=== PATIENT | male | born 1960 | race Caucasian/White ===

== ENCOUNTER 2017-12-08 15:26 | Inpatient (IN) | payer MEDICARE, OTHER ==
[~2017-12-08] VITALS: Ht 190.5 cm; Wt 129.0 kg
[~2017-12-08 15:26] MED LIST: ALBU8.5H8 IH; CLOP75TA35 PO; DIAZ2TAB PO; GABA-581 PO; HYDR-565 PO; LAMO150T2 PO; LISI-604 PO; METF500T PO; MONT10TA21 PO; NITR0.4T48 SL; PRAVASTATIN SODIUM PO; RANI150C11 PO; VALA1POW PO; VILA40TA PO; hytrin PO
[2017-12-08] MEDS ORDERED: aspirin 81mg tab.chew PO ONE (15:30)
[2017-12-08 15:50] LABS: BASOPHILS # (AUTO) 0.1 X10'3 (0-0.2); EOSINOPHILS # (AUTO) 0.2 X10'3 (0-0.9); EOSINOPHILS % (AUTO) 1.7 % (0-6); HEMATOCRIT 35.4 % (42.0-52.0); HEMOGLOBIN 12.1 g/dl (14.0-17.9); LYMPHOCYTES # (AUTO) 2.6 X10'3 (1.1-4.8); LYMPHOCYTES % (AUTO) 28.9 % (21-51); MEAN CORPUSCULAR HEMOGLOBIN 30.6 PG (27.0-31.0); MEAN CORPUSCULAR HGB CONC 34.2 % (33.0-36.5); MEAN CORPUSCULAR VOLUME 89.6 FL (78-98); MEAN PLATELET VOLUME 7.2 FL (7.4-10.4); MONOCYTES # (AUTO) 0.6 X10'3 (0-0.9); NEUTROPHILS # (AUTO) 5.5 X10'3 (1.8-7.7); NEUTROPHILS % (AUTO) 61.4 % (42-75); PLATELET COUNT 400 X10'3 (140-440); RED BLOOD COUNT 3.95 X10'6 (4.70-6.10); RED CELL DISTRIBUTION WIDTH 13.7 % (11.5-14.5)
[2017-12-08 16:09] LABS: ALANINE AMINOTRANSFERASE 28 U/L (12-78); ALBUMIN 3.5 G/DL (3.4-5.0); ALBUMIN/GLOBULIN RATIO 0.8 (1.1-1.5); ALKALINE PHOSPHATASE 58 IU/L (46-116); ANION GAP 11 (8-16); ASPARTATE AMINO TRANSFERASE 17 U/L (10-37); BILIRUBIN,TOTAL 0.3 MG/DL (0.1-1.0); BLOOD UREA NITROGEN 21 MG/DL (7-18); BUN/CREATININE RATIO 14.5 (5.4-32.0); CHLORIDE 99 MMOL/L (99-107); CREATININE 1.45 MG/DL (0.60-1.10); GLUCOSE 124 MG/DL (70-104); MAGNESIUM 1.7 MG/DL (1.5-2.4); POTASSIUM 4.1 MMOL/L (3.5-5.1); SODIUM 135 MMOL/L (135-145); TOTAL CARBON DIOXIDE 24.6 MMOL/L (24-32); TOTAL PROTEIN 8.1 G/DL (6.4-8.2); eGFR 51 ML/MIN
[2017-12-08] MEDS ORDERED: aminophylline 250mg/10ml inj. IV PRN (17:35)
[2017-12-08] MEDS ORDERED: acetaminophen 325mg tablet PO PRN (17:35)
[2017-12-08] MEDS ORDERED: ondansetron/PF 4mg/2ml inj IV PRN (17:35)
[2017-12-08] MEDS ORDERED: magnesium hydroxide 30ml (MOM) UD suspension PO PRN (17:35)
[2017-12-08] MEDS ORDERED: metoprolol tartrate 1mg/ml inj IV PRN (17:35)
[2017-12-08] MEDS ORDERED: nitroGLYCERIN 0.4mg SUBLingual tab SL PRN (17:35)
[2017-12-08] MEDS ORDERED: mag hydrox/Alum hydrox/simeth 30ml oral suspension PO PRN (17:35)
[2017-12-08] MEDS ORDERED: regadenoson 0.4mg/5ml syringe IV PRN (17:35)
[2017-12-08] MEDS ORDERED: dextrose 50%-water 50ml dispensing syringe IV PRN ×2 (17:40)
[2017-12-08] MEDS ORDERED: dextrose ORAL solution 15 GM/59 ML bottle PO PRN ×2 (17:40)
[2017-12-08] MEDS ORDERED: glucagon, human recombinant 1mg kit SUBCUT PRN (17:40)
[2017-12-08] MEDS ORDERED: MESSAGE TO PHARMACY PO ONE (17:40)
[2017-12-08] MEDS ORDERED: insulin Lispro (HumaLOG) vial - multi-dose SQ SCH (17:40)
[2017-12-08] MEDS: insulin glargine (Lantus) pen - multi-dose SQ SCH (18:16)
[2017-12-08 18:21] LABS: D-DIMER 0.47 MG/L FEU (0-0.50)
[2017-12-08] MEDS: nitroGLYCERIN 0.4mg SUBLingual tab SL PRN ×3 (18:38→23:47)
[2017-12-08 19:09] LABS: HEMOGLOBIN A1C 6.1 % (4.5-6.2)
[2017-12-09] VITALS (7 sets, daily range): BP systolic 126–141; BP diastolic 57–78
[2017-12-09] MEDS ORDERED: HYDROcodone/acetaminophen 10/325mg tab PO STA (04:02)
[2017-12-09] MEDS ORDERED: enoxaparin 40mg/0.4ml syringe SUBCUT SCH (08:00)
[2017-12-09] MEDS ORDERED: aminophylline inj. 0 ML IV ONE (10:08)
[2017-12-09] MEDS ORDERED: regadenoson 0.4mg/5ml syringe IV ONE (10:09)
[2017-12-09] MEDS ORDERED: TERA10CA4 PO (14:03)
[2017-12-09] MEDS ORDERED: nitroGLYCERIN 0.4mg SUBLingual tab SL PRN (17:00)
[2017-12-09] MEDS ORDERED: clopidogrel 75mg tablet PO SCH (17:00)
[2017-12-09] MEDS ORDERED: dextrose ORAL solution 15 GM/59 ML bottle PO PRN ×2 (17:10)
[2017-12-09] MEDS ORDERED: glucagon, human recombinant 1mg kit SUBCUT PRN (17:10)
[2017-12-09] MEDS ORDERED: dextrose 50%-water 50ml dispensing syringe IV PRN ×2 (17:10)
[2017-12-09] MEDS ORDERED: MESSAGE TO PHARMACY PO ONE (17:10)
[2017-12-09] MEDS ORDERED: insulin Lispro (HumaLOG) vial - multi-dose SQ SCH (17:10)
[2017-12-09] MEDS ORDERED: METF1000 PO (17:17)
[2017-12-09] MEDS ORDERED: LAMO100T2 PO (17:17)
[2017-12-09] MEDS ORDERED: HYDR-3973 PO (17:17)
[2017-12-09] MEDS ORDERED: LISI40TA4 PO (17:17)
[2017-12-09] MEDS ORDERED: GABA800T2 PO (17:17)
[2017-12-09] MEDS ORDERED: OXYB15TA PO (17:17)
[2017-12-09] MEDS ORDERED: albuterol 2.5 MG/3 ML nebule NEB PRN (17:35)
[2017-12-09] MEDS ORDERED: magnesium 2GM in 50ml NS 50 ML IV ONE (18:10)
[2017-12-09 18:11] LABS: CHOL/HDL RATIO 4.7 (0.00-4.99); CHOLESTEROL 155 MG/DL (0-200); HDL CHOLESTEROL 33 MG/DL (35-60); LDL CHOLESTEROL 94 MG/DL (50-100); TRIGLYCERIDES 158 MG/DL (20-135)
[2017-12-09] MEDS: pantoprazole 40mg Tablet.DR PO SCH (18:30)
[2017-12-09] MEDS: nitroGLYCERIN 0.4mg/hour patch TD SCH (18:32)
[2017-12-09 18:36] LABS: H PYLORI ANTIBODY POSITIVE (Neg)
[2017-12-09] MEDS: terazosin 5mg capsule PO SCH (20:00)
[2017-12-09] MEDS ORDERED: metoprolol tartrate 12.5mg (1/2 tablet) PO SCH (20:00)
[2017-12-09] MEDS: lisinopril 5mg tablet PO SCH (20:28)
[2017-12-09] MEDS: lamoTRIgine 100mg tablet PO SCH (20:28)
[2017-12-09] MEDS: diazepam 2mg tablet PO SCH (20:28)
[2017-12-09] MEDS: montelukast 10mg tablet PO SCH (20:28)
[2017-12-09] MEDS: famotidine 20mg tablet PO SCH (20:28)
[2017-12-09] MEDS: HYDROcodone/acetaminophen 10/325mg tab PO SCH (20:28)
[2017-12-09] MEDS: oxybutynin 5mg tablet PO SCH (20:28)
[2017-12-09] MEDS: insulin glargine (Lantus) pen - multi-dose SQ SCH ×2 (21:00)
[2017-12-10] VITALS: BP 131/69
[2017-12-10] MEDS ORDERED: gabapentin 400mg capsule PO SCH
[2017-12-10] MEDS ORDERED: Melatonin 3mg tablet PO PRN (02:35)
[2017-12-10] MEDS: HYDROcodone/acetaminophen 10/325mg tab PO SCH ×4 (03:17→19:41)
[2017-12-10 07:00] VITALS: BP 147/60
[2017-12-10 07:32] LABS: BASOPHILS % (AUTO) 0.3 % (0-1); EOSINOPHILS # (AUTO) 0.3 X10'3 (0-0.9); EOSINOPHILS % (AUTO) 2.9 % (0-6); HEMATOCRIT 33.9 % (42.0-52.0); HEMOGLOBIN 11.8 g/dl (14.0-17.9); LYMPHOCYTES # (AUTO) 2.5 X10'3 (1.1-4.8); LYMPHOCYTES % (AUTO) 26.4 % (21-51); MEAN CORPUSCULAR HEMOGLOBIN 31.1 PG (27.0-31.0); MEAN CORPUSCULAR HGB CONC 34.6 % (33.0-36.5); MEAN CORPUSCULAR VOLUME 89.8 FL (78-98); MEAN PLATELET VOLUME 7.3 FL (7.4-10.4); MONOCYTES # (AUTO) 0.7 X10'3 (0-0.9); MONOCYTES % (AUTO) 7.4 % (2-12); NEUTROPHILS # (AUTO) 5.9 X10'3 (1.8-7.7); PLATELET COUNT 372 X10'3 (140-440); RED BLOOD COUNT 3.78 X10'6 (4.70-6.10); RED CELL DISTRIBUTION WIDTH 13.7 % (11.5-14.5); WHITE BLOOD COUNT 9.4 X10'3 (4.5-11.0)
[2017-12-10 07:35] LABS: ALBUMIN 3.4 G/DL (3.4-5.0); ANION GAP 8 (8-16); BLOOD UREA NITROGEN 15 MG/DL (7-18); BUN/CREATININE RATIO 12.5 (5.4-32.0); CALCIUM 8.5 MG/DL (8.5-10.1); CHLORIDE 104 MMOL/L (99-107); GLUCOSE 99 MG/DL (70-104); POTASSIUM 4.3 MMOL/L (3.5-5.1); SODIUM 141 MMOL/L (135-145); TOTAL CARBON DIOXIDE 28.7 MMOL/L (24-32); eGFR 63 ML/MIN
[2017-12-10] MEDS ORDERED: VILAZODONE HYDROCHLORIDE 40 MG PO SCH (08:00)
[2017-12-10] MEDS ORDERED: lisinopril 5mg tablet PO SCH (08:00)
[2017-12-10] MEDS ORDERED: lamoTRIgine 100mg tablet PO SCH (08:00)
[2017-12-10] MEDS ORDERED: non-formulary drug (Gabapentin (Gralise) 3 TAB) PO SCH (08:00)
[2017-12-10] MEDS: pantoprazole 40mg Tablet.DR PO SCH (09:09)
[2017-12-10] MEDS: terazosin 5mg capsule PO SCH ×2 (09:09→20:51)
[2017-12-10] MEDS: nitroGLYCERIN 0.4mg/hour patch TD SCH (09:09)
[2017-12-10] MEDS: metoprolol tartrate 25mg tablet PO SCH ×3 (09:10→22:23)
[2017-12-10] MEDS: lamoTRIgine 100mg tablet PO SCH ×2 (09:10→20:51)
[2017-12-10] MEDS: diazepam 2mg tablet PO SCH ×3 (09:11→20:50)
[2017-12-10] MEDS: famotidine 20mg tablet PO SCH ×2 (09:11→20:50)
[2017-12-10] MEDS: gabapentin 400mg capsule PO SCH ×3 (09:11→15:45)
[2017-12-10] MEDS: lisinopril 5mg tablet PO SCH ×2 (09:12→20:50)
[2017-12-10] MEDS: valacyclovir 500mg tablet PO SCH (09:12)
[2017-12-10] MEDS: apixaban 5mg tablet PO SCH ×2 (09:12→20:51)
[2017-12-10 11:33] VITALS: BP 89/56
[2017-12-10 12:14] VITALS: BP 124/58
[2017-12-10 17:40] VITALS: BP 105/62
[2017-12-10] MEDS: diphenhydrAMINE 25mg capsule PO PRN (19:41)
[2017-12-10 20:00] VITALS: BP 107/51
[2017-12-10] MEDS: montelukast 10mg tablet PO SCH (20:50)
[2017-12-10] MEDS: oxybutynin 5mg tablet PO SCH (20:51)
[2017-12-10] MEDS: insulin glargine (Lantus) pen - multi-dose SQ SCH (20:54)
[2017-12-10] MEDS ORDERED: metoprolol tartrate 25mg tablet PO ONE (23:10)
[2017-12-11] VITALS (9 sets, daily range): BP systolic 81–119; BP diastolic 37–70
[2017-12-11] MEDS: diphenhydrAMINE 25mg capsule PO PRN ×2 (01:13→20:55)
[2017-12-11] MEDS: HYDROcodone/acetaminophen 10/325mg tab PO SCH ×4 (01:14→20:48)
[2017-12-11] MEDS: valacyclovir 500mg tablet PO SCH (08:00)
[2017-12-11] MEDS: lisinopril 5mg tablet PO SCH ×2 (08:00→20:00)
[2017-12-11] MEDS: sotalol 80mg tablet PO SCH ×2 (08:19→20:46)
[2017-12-11] MEDS: famotidine 20mg tablet PO SCH ×2 (08:19→20:49)
[2017-12-11] MEDS: diazepam 2mg tablet PO SCH ×3 (08:19→21:00)
[2017-12-11] MEDS: pantoprazole 40mg Tablet.DR PO SCH (08:19)
[2017-12-11] MEDS: apixaban 5mg tablet PO SCH ×2 (08:19→20:45)
[2017-12-11] MEDS: lamoTRIgine 100mg tablet PO SCH ×2 (08:20→20:48)
[2017-12-11] MEDS: terazosin 5mg capsule PO SCH ×2 (08:21→20:46)
[2017-12-11] MEDS: gabapentin 400mg capsule PO SCH ×4 (08:21→23:44)
[2017-12-11] MEDS ORDERED: pantoprazole 40mg Tablet.DR PO SCH (15:05)
[2017-12-11 15:51] LABS: ALBUMIN 3.3 G/DL (3.4-5.0); ANION GAP 6 (8-16); BLOOD UREA NITROGEN 17 MG/DL (7-18); BUN/CREATININE RATIO 13.5 (5.4-32.0); CALCIUM 8.5 MG/DL (8.5-10.1); CHLORIDE 102 MMOL/L (99-107); CREATININE 1.26 MG/DL (0.60-1.10); GLUCOSE 98 MG/DL (70-104); POTASSIUM 4.6 MMOL/L (3.5-5.1); SODIUM 138 MMOL/L (135-145); TOTAL CARBON DIOXIDE 30.3 MMOL/L (24-32); eGFR 59 ML/MIN
[2017-12-11 16:01] LABS: ABG HCO3 22.8 mmol/L (22.0-26.0); ABG OXYGEN SATURATION 95.9 % (95-98); ABG PCO2 (T) 38.9 mmHg (35.0-48.0); ABG PH (T) 7.385 (7.350-7.450); ABG PO2 (T) 87.7 mmHg (83-108); ALLEN'S TEST Positive; FCOHb 0.2 % (0.5-1.5); FO2Hb 95.7 % (94-100); TOTAL HEMOGLOBIN 12.5 G/dl (14.0-18.0)
[2017-12-11] MEDS: bismuth subsalicylate 262mg chew tablet PO SCH (20:00)
[2017-12-11] MEDS: metroNIDAZOLE 500mg tablet PO SCH (20:46)
[2017-12-11] MEDS: insulin glargine (Lantus) pen - multi-dose SQ SCH (21:00)
[2017-12-11] MEDS: oxybutynin 5mg tablet PO SCH (21:48)
[2017-12-11] MEDS: montelukast 10mg tablet PO SCH (21:48)
[2017-12-12] MEDS: bismuth subsalicylate 262mg chew tablet PO SCH ×4 (02:00→20:36)
[2017-12-12] MEDS: HYDROcodone/acetaminophen 10/325mg tab PO SCH ×4 (02:15→20:32)
[2017-12-12 03:00] VITALS: BP 101/58
[2017-12-12 06:30] VITALS: BP 99/46
[2017-12-12] MEDS: valacyclovir 500mg tablet PO SCH (07:36)
[2017-12-12] MEDS: pantoprazole 40mg Tablet.DR PO SCH (07:36)
[2017-12-12] MEDS: gabapentin 400mg capsule PO SCH ×2 (07:36→16:40)
[2017-12-12] MEDS: diazepam 2mg tablet PO SCH ×3 (07:36→20:32)
[2017-12-12] MEDS: terazosin 5mg capsule PO SCH ×2 (07:37→20:33)
[2017-12-12] MEDS: lamoTRIgine 100mg tablet PO SCH ×2 (07:37→20:33)
[2017-12-12] MEDS: sotalol 80mg tablet PO SCH ×2 (07:37→20:33)
[2017-12-12] MEDS: apixaban 5mg tablet PO SCH ×2 (07:37→20:34)
[2017-12-12] MEDS: famotidine 20mg tablet PO SCH ×2 (07:37→20:33)
[2017-12-12] MEDS: metroNIDAZOLE 500mg tablet PO SCH ×2 (07:39→20:32)
[2017-12-12] MEDS: lisinopril 5mg tablet PO SCH (08:00)
[2017-12-12 08:20] LABS: BASOPHILS % (AUTO) 0.5 % (0-1); EOSINOPHILS # (AUTO) 0.2 X10'3 (0-0.9); EOSINOPHILS % (AUTO) 2.9 % (0-6); HEMATOCRIT 33.1 % (42.0-52.0); HEMOGLOBIN 11.5 g/dl (14.0-17.9); LYMPHOCYTES # (AUTO) 2.3 X10'3 (1.1-4.8); LYMPHOCYTES % (AUTO) 32.6 % (21-51); MEAN CORPUSCULAR HGB CONC 34.9 % (33.0-36.5); MEAN CORPUSCULAR VOLUME 88.9 FL (78-98); MEAN PLATELET VOLUME 7.5 FL (7.4-10.4); MONOCYTES # (AUTO) 0.6 X10'3 (0-0.9); MONOCYTES % (AUTO) 9.2 % (2-12); NEUTROPHILS # (AUTO) 3.8 X10'3 (1.8-7.7); NEUTROPHILS % (AUTO) 54.8 % (42-75); PLATELET COUNT 358 X10'3 (140-440); RED BLOOD COUNT 3.72 X10'6 (4.70-6.10); RED CELL DISTRIBUTION WIDTH 13.6 % (11.5-14.5); WHITE BLOOD COUNT 6.9 X10'3 (4.5-11.0)
[2017-12-12 08:35] LABS: ALBUMIN 3.3 G/DL (3.4-5.0); ANION GAP 7 (8-16); BLOOD UREA NITROGEN 18 MG/DL (7-18); CALCIUM 8.5 MG/DL (8.5-10.1); CHLORIDE 105 MMOL/L (99-107); GLUCOSE 97 MG/DL (70-104); POTASSIUM 4.3 MMOL/L (3.5-5.1); SODIUM 140 MMOL/L (135-145); TOTAL CARBON DIOXIDE 28.2 MMOL/L (24-32); eGFR 63 ML/MIN
[2017-12-12 11:00] VITALS: BP 109/69
[2017-12-12] MEDS ORDERED: lisinopril 5mg tablet PO SCH (12:30)
[2017-12-12 15:00] VITALS: BP 107/49
[2017-12-12] MEDS: lactobacillus rhamnosus 10,000 MMU CELLS/CAPSULE PO SCH (16:41)
[2017-12-12 19:00] VITALS: BP 112/55
[2017-12-12] MEDS: oxybutynin 5mg tablet PO SCH (20:33)
[2017-12-12] MEDS: montelukast 10mg tablet PO SCH (20:34)
[2017-12-12] MEDS: insulin glargine (Lantus) pen - multi-dose SQ SCH (21:00)
[2017-12-12 23:00] VITALS: BP 116/58
[2017-12-13] MEDS: diphenhydrAMINE 25mg capsule PO PRN (00:18)
[2017-12-13] MEDS: gabapentin 400mg capsule PO SCH ×2 (00:21→08:59)
[2017-12-13] MEDS: bismuth subsalicylate 262mg chew tablet PO SCH ×2 (02:00→08:00)
[2017-12-13 03:00] VITALS: BP 106/51
[2017-12-13] MEDS: HYDROcodone/acetaminophen 10/325mg tab PO SCH ×2 (03:14→09:01)
[2017-12-13 06:00] VITALS: BP 120/68
[2017-12-13] MEDS: metroNIDAZOLE 500mg tablet PO SCH (09:00)
[2017-12-13] MEDS: diazepam 2mg tablet PO SCH (09:00)
[2017-12-13] MEDS: lamoTRIgine 100mg tablet PO SCH (09:00)
[2017-12-13] MEDS: terazosin 5mg capsule PO SCH (09:00)
[2017-12-13] MEDS: famotidine 20mg tablet PO SCH (09:00)
[2017-12-13] MEDS: lactobacillus rhamnosus 10,000 MMU CELLS/CAPSULE PO SCH (09:01)
[2017-12-13] MEDS: valacyclovir 500mg tablet PO SCH (09:01)
[2017-12-13] MEDS: pantoprazole 40mg Tablet.DR PO SCH (09:01)
[2017-12-13] MEDS: sotalol 80mg tablet PO SCH (09:01)
[2017-12-13] MEDS: apixaban 5mg tablet PO SCH (09:03)
[2017-12-13] MEDS ORDERED: LISI-604 PO (10:09)
[2017-12-13] MEDS ORDERED: TETR250C PO (10:09)
[2017-12-13] MEDS ORDERED: OMEP20TA5 PO (10:09)
[2017-12-13] MEDS ORDERED: SOTA80TA69 PO (10:09)
[2017-12-13] MEDS ORDERED: APIX5TAB3 PO (10:09)
[2017-12-13] MEDS ORDERED: BISM262T27 PO (10:09)
[2017-12-13] MEDS ORDERED: METR500T4 PO (10:09)
[2017-12-13] MEDS ORDERED: NITR0.4T48 SL (10:09)
[2017-12-13 11:00] VITALS: BP 101/54
== END 2017-12-13 12:55 | disposition home or self-care (01) | DRG 683 ==
LOC: ER 15:26 → ED HOLD 17:35 → OBSVTOIN 17:35 → EDBEDREQ 12-09 18:16 → SUR 3N 12-09 19:22 → PCU 3S 12-11 02:47
PROVIDERS: ADMIT Internal Medicine; ATTEND Family Medicine
PROC: 4A02XM4 Measurement of Cardiac Total Activity, External Approach (ICD-10-PCS; principal; 2017-12-09)
PROC: 3E073KZ Introduction of Other Diagnostic Substance into Coronary Artery, Percutaneous Approach (ICD-10-PCS; 2017-12-09)
DX: N17.9 Acute kidney failure, unspecified (principal); I48.92 Unspecified atrial flutter; E11.22 Type 2 diabetes mellitus with diabetic chronic kidney disease; I48.0 Paroxysmal atrial fibrillation; F20.9 Schizophrenia, unspecified; I25.119 Atherosclerotic heart disease of native coronary artery with unspecified angina pectoris; Z68.35 Body mass index [BMI] 35.0-35.9, adult; B19.20 Unspecified viral hepatitis C without hepatic coma; B96.81 Helicobacter pylori [H. pylori] as the cause of diseases classified elsewhere; E78.5 Hyperlipidemia, unspecified; J44.9 Chronic obstructive pulmonary disease, unspecified; N18.9 Chronic kidney disease, unspecified; K21.9 Gastro-esophageal reflux disease without esophagitis; F32.9 Major depressive disorder, single episode, unspecified; I12.9 Hypertensive chronic kidney disease with stage 1 through stage 4 chronic kidney disease, or unspecified chronic kidney disease; E66.9 Obesity, unspecified; F41.9 Anxiety disorder, unspecified; G89.29 Other chronic pain; M54.9 Dorsalgia, unspecified; F12.90 Cannabis use, unspecified, uncomplicated; I25.2 Old myocardial infarction; Z88.8 Allergy status to other drugs, medicaments and biological substances; Z79.02 Long term (current) use of antithrombotics/antiplatelets; Z79.84 Long term (current) use of oral hypoglycemic drugs; Z79.899 Other long term (current) drug therapy; Z86.73 Personal history of transient ischemic attack (TIA), and cerebral infarction without residual deficits; Z87.891 Personal history of nicotine dependence; Z82.49 Family history of ischemic heart disease and other diseases of the circulatory system
CPT/HCPCS: 36415; 36600; 71045; 78452; 80048; 80053; 80061; 82803; 82948; 83036; 83735; 83880; 84443; 84484; 85018; 85025; 85379; 86677; 87070; 93005; 93017; 93306; 94760; 99285; A9500; J0280; J1650; J1815; J2785; J3475; J3490; Q0163

== ENCOUNTER 2018-03-18 21:19 | Emergency (ER) | payer MEDICARE, OTHER ==
[~2018-03-18] VITALS: Ht 190.5 cm; Wt 129.6 kg
[~2018-03-18 21:19] MED LIST changes: +APIX5TAB3 PO; +BISM262T27 PO; -CLOP75TA35 PO; -GABA-581 PO; +GABA800T2 PO; +HYDR-3973 PO; -HYDR-565 PO; +LAMO100T2 PO; -LAMO150T2 PO; +METF1000 PO; -METF500T PO; +METR500T4 PO; +OMEP20TA5 PO; +OXYB15TA PO; -PRAVASTATIN SODIUM PO; +SOTA80TA73 PO; +TERA10CA4 PO; +TETR250C PO; -VILA40TA PO; -hytrin PO
[2018-03-18] MEDS ORDERED: normal saline 1000ML IV soln IVB ONE (21:40)
[2018-03-18 22:00] LABS: BASOPHILS # (AUTO) 0.1 X10'3 (0-0.2); BASOPHILS % (AUTO) 0.9 % (0-1); EOSINOPHILS # (AUTO) 0.3 X10'3 (0-0.9); EOSINOPHILS % (AUTO) 4.6 % (0-6); HEMATOCRIT 33.6 % (42.0-52.0); HEMOGLOBIN 11.6 g/dl (14.0-17.9); LYMPHOCYTES # (AUTO) 2.2 X10'3 (1.1-4.8); LYMPHOCYTES % (AUTO) 28.6 % (21-51); MEAN CORPUSCULAR HEMOGLOBIN 31.6 PG (27.0-31.0); MEAN CORPUSCULAR HGB CONC 34.6 % (33.0-36.5); MEAN CORPUSCULAR VOLUME 91.3 FL (78-98); MEAN PLATELET VOLUME 7.5 FL (7.4-10.4); MONOCYTES # (AUTO) 0.6 X10'3 (0-0.9); MONOCYTES % (AUTO) 7.8 % (2-12); NEUTROPHILS # (AUTO) 4.4 X10'3 (1.8-7.7); NEUTROPHILS % (AUTO) 58.1 % (42-75); PLATELET COUNT 272 X10'3 (140-440); RED BLOOD COUNT 3.68 X10'6 (4.70-6.10); RED CELL DISTRIBUTION WIDTH 13.5 % (11.5-14.5); WHITE BLOOD COUNT 7.5 X10'3 (4.5-11.0)
[2018-03-18 22:13] LABS: PARTIAL THROMBOPLASTIN TIME 25 SECONDS (22-32); PROTHROMBIN TIME 10.6 SECONDS (9.0-12.0)
[2018-03-18 22:18] LABS: ALANINE AMINOTRANSFERASE 27 U/L (12-78); ALBUMIN 3.9 G/DL (3.4-5.0); ALBUMIN/GLOBULIN RATIO 1.1 (1.1-1.5); ALKALINE PHOSPHATASE 58 IU/L (46-116); ANION GAP 11 (8-16); ASPARTATE AMINO TRANSFERASE 23 U/L (10-37); BILIRUBIN,TOTAL 0.5 MG/DL (0.1-1.0); BLOOD UREA NITROGEN 19 MG/DL (7-18); BUN/CREATININE RATIO 7.9 (5.4-32.0); CHLORIDE 97 MMOL/L (99-107); GLUCOSE 145 MG/DL (70-104); POTASSIUM 3.6 MMOL/L (3.5-5.1); SODIUM 134 MMOL/L (135-145); TOTAL CARBON DIOXIDE 26.5 MMOL/L (24-32); TOTAL PROTEIN 7.3 G/DL (6.4-8.2); eGFR 28 ML/MIN
[2018-03-18] MEDS ORDERED: normal saline 1000ml 1,000 ML IV ONE (22:20)
[2018-03-18 22:24] LABS: LIPASE 151 U/L (73-393); MAGNESIUM 1.6 MG/DL (1.5-2.4)
[2018-03-18] MEDS ORDERED: morphine 4 MG/ML inj SYRINge IV ONE (23:25)
[2018-03-18] MEDS ORDERED: ondansetron/PF 4mg/2ml inj IV ONE (23:25)
[2018-03-19] MEDS ORDERED: ELIQUIS 5 MG (00:13)
[2018-03-19] MEDS ORDERED: APAP (00:13)
[2018-03-19] MEDS ORDERED: DIAZEPAM 2 MG (00:13)
[2018-03-19] MEDS ORDERED: HYDROCODONE (00:13)
[2018-03-19] MEDS ORDERED: FLECAINIDE ACETATE 100 MG (00:13)
[2018-03-19] MEDS ORDERED: GABAPENTIN 800 MG (00:13)
[2018-03-19] MEDS ORDERED: OXYBUTYNIN CHLOR (00:13)
[2018-03-19] MEDS ORDERED: LISINOPRIL 5 MG (00:13)
[2018-03-19] MEDS ORDERED: VALACYCLOVIR HCL 500 MG (00:13)
[2018-03-19] MEDS ORDERED: TERAZOSIN HCL 10 MG (00:13)
[2018-03-19 04:55] LABS: CLARITY,URINE CLEAR (Clear); COLOR,URINE YELLOW (Yellow); GLUCOSE, URINE NEGATIVE (Neg); KETONES,URINE NEGATIVE (Neg); LEUKOCYTE ESTERASE ,URINE NEGATIVE (Neg); NITRITES, URINE NEGATIVE (Neg); OCCULT BLOOD,URINE NEGATIVE (Neg); PROTEIN,URINE NEGATIVE (Neg); UA COLLECTION TYPE CLN CATCH MIDSTREAM; UROBILINOGEN,URINE 0.2 E.U/dL (0.2-1.0)
[2018-03-19 05:03] VITALS: BP 134/68
== END 2018-03-19 05:17 | disposition home or self-care (01) ==
LOC: ER 21:20
DX: I95.9 Hypotension, unspecified (principal); R07.89 Other chest pain; I25.10 Atherosclerotic heart disease of native coronary artery without angina pectoris; J44.9 Chronic obstructive pulmonary disease, unspecified; K21.9 Gastro-esophageal reflux disease without esophagitis; G89.29 Other chronic pain; F12.90 Cannabis use, unspecified, uncomplicated; Z86.73 Personal history of transient ischemic attack (TIA), and cerebral infarction without residual deficits; Z79.84 Long term (current) use of oral hypoglycemic drugs; Z79.899 Other long term (current) drug therapy; Z88.8 Allergy status to other drugs, medicaments and biological substances
CPT/HCPCS: 36415; 71045; 80053; 81003; 83690; 83735; 83880; 84484; 85025; 85610; 85730; 93005; 96361; 96374; 96375; 99285; J2270; J2405

== ENCOUNTER 2018-07-06 15:08 | Observation (INO) | payer MEDICARE, OTHER ==
[~2018-07-06] VITALS: Ht 190.5 cm; Wt 131.1 kg
[~2018-07-06 15:08] MED LIST changes: +APAP; +DIAZEPAM 2 MG; +ELIQUIS 5 MG; +FLECAINIDE ACETATE 100 MG; +GABAPENTIN 800 MG; +HYDROCODONE; +LISINOPRIL 5 MG; +OXYBUTYNIN CHLOR; +TERAZOSIN HCL 10 MG; +TETR-58 PO; -TETR250C PO; +VALACYCLOVIR HCL 500 MG
[2018-07-06 15:15] VITALS: BP 115/61
[2018-07-06 15:22] LABS: BASOPHILS % (AUTO) 0.4 % (0-1); EOSINOPHILS # (AUTO) 0.2 X10'3 (0-0.9); EOSINOPHILS % (AUTO) 1.8 % (0-6); HEMATOCRIT 37.5 % (42.0-52.0); HEMOGLOBIN 12.7 g/dl (14.0-17.9); LYMPHOCYTES % (AUTO) 21.5 % (21-51); MEAN CORPUSCULAR HEMOGLOBIN 31.1 PG (27.0-31.0); MEAN CORPUSCULAR HGB CONC 33.8 % (33.0-36.5); MEAN CORPUSCULAR VOLUME 91.9 FL (78-98); MEAN PLATELET VOLUME 7.5 FL (7.4-10.4); MONOCYTES # (AUTO) 0.7 X10'3 (0-0.9); MONOCYTES % (AUTO) 7.8 % (2-12); NEUTROPHILS # (AUTO) 6.2 X10'3 (1.8-7.7); NEUTROPHILS % (AUTO) 68.5 % (42-75); PLATELET COUNT 293 X10'3 (140-440); RED BLOOD COUNT 4.07 X10'6 (4.70-6.10); RED CELL DISTRIBUTION WIDTH 13.6 % (11.5-14.5); WHITE BLOOD COUNT 9.1 X10'3 (4.5-11.0)
[2018-07-06] MEDS ORDERED: normal saline 1000ML IV soln IVB ONE (15:25)
[2018-07-06] MEDS ORDERED: DULO-31 PO (15:33)
[2018-07-06 15:38] LABS: ALANINE AMINOTRANSFERASE 19 U/L (12-78); ALBUMIN/GLOBULIN RATIO 1.2 (1.1-1.5); ALKALINE PHOSPHATASE 62 IU/L (46-116); ANION GAP 11 (8-16); ASPARTATE AMINO TRANSFERASE 17 U/L (10-37); BILIRUBIN,TOTAL 0.5 MG/DL (0.1-1.0); BLOOD UREA NITROGEN 14 MG/DL (7-18); BUN/CREATININE RATIO 8.2 (5.4-32.0); CALCIUM 8.4 MG/DL (8.5-10.1); CHLORIDE 98 MMOL/L (99-107); GLUCOSE 131 MG/DL (70-104); POTASSIUM 3.4 MMOL/L (3.5-5.1); SODIUM 135 MMOL/L (135-145); TOTAL CARBON DIOXIDE 26.3 MMOL/L (24-32); TOTAL PROTEIN 7.3 G/DL (6.4-8.2); eGFR 42 ML/MIN
[2018-07-06 15:48] LABS: PROTHROMBIN TIME 10.7 SECONDS (9.0-12.0)
[2018-07-06 15:49] LABS: D-DIMER < 0.19 MG/L FEU (0-0.50); PARTIAL THROMBOPLASTIN TIME 24 SECONDS (22-32)
[2018-07-06] MEDS ORDERED: acetaminophen 325mg tablet PO PRN (16:25)
[2018-07-06] MEDS ORDERED: ondansetron/PF 4mg/2ml inj IV PRN (16:25)
[2018-07-06] MEDS ORDERED: mag hydrox/Alum hydrox/simeth 30ml oral suspension PO PRN (16:25)
[2018-07-06] MEDS ORDERED: magnesium hydroxide 30ml (MOM) UD suspension PO PRN (16:25)
[2018-07-06] MEDS ORDERED: nitroGLYCERIN 0.4mg SUBLingual tab SL PRN (16:30)
[2018-07-06] MEDS ORDERED: glucagon, human recombinant 1mg kit SUBCUT PRN (16:30)
[2018-07-06] MEDS ORDERED: non-formulary drug (Albuterol Sulfate (Proair Hfa) 2 PUFFS) IH PRN (16:30)
[2018-07-06] MEDS ORDERED: insulin Lispro (HumaLOG) vial - multi-dose SQ SCH (16:30)
[2018-07-06] MEDS ORDERED: dextrose ORAL solution 15 GM/59 ML bottle PO PRN ×2 (16:30)
[2018-07-06] MEDS ORDERED: MESSAGE TO PHARMACY PO ONE (16:30)
[2018-07-06] MEDS ORDERED: dextrose 50%-water 50ml dispensing syringe IV PRN ×2 (16:30)
[2018-07-06] MEDS ORDERED: albuterol 2.5 MG/3 ML nebule NEB PRN (16:45)
[2018-07-06] MEDS ORDERED: potassium Cl 40MEQ/NS 500ml 500 ML IV PRN ×2 (17:00)
[2018-07-06] MEDS ORDERED: potassium Cl 20 mEq SR tablet PO PRN (17:00)
[2018-07-06] MEDS: potassium Cl 20 mEq SR tablet PO PRN ×2 (17:45→22:12)
[2018-07-06 19:00] VITALS: BP 129/61
[2018-07-06 19:51] LABS: HEMOGLOBIN A1C 5.7 % (4.5-6.2)
[2018-07-06] MEDS ORDERED: RANITIDINE HCL 150 MG PO SCH (20:00)
[2018-07-06] MEDS ORDERED: TERAZOSIN HCL PO SCH (20:00)
[2018-07-06] MEDS ORDERED: montelukast 10mg tablet PO SCH (21:00)
[2018-07-06] MEDS ORDERED: insulin glargine (Lantus) pen - multi-dose SQ SCH (21:00)
[2018-07-06] MEDS: terazosin 5mg capsule PO SCH (21:26)
[2018-07-06] MEDS: famotidine 20mg tablet PO SCH (21:26)
[2018-07-06] MEDS: diazepam 2mg tablet PO SCH (21:26)
[2018-07-06] MEDS: lamoTRIgine 100mg tablet PO SCH (21:26)
[2018-07-06] MEDS: metFORMIN 500mg tablet PO SCH (21:27)
[2018-07-06] MEDS: morphine 2 MG/ML inj. syringe IV PRN (22:20)
[2018-07-06 23:00] VITALS: BP 101/51
[2018-07-07] MEDS ORDERED: non-formulary drug (Gabapentin 1 TAB) PO SCH
[2018-07-07] MEDS: gabapentin 400mg capsule PO SCH ×2 (00:30→08:33)
[2018-07-07 03:00] VITALS: BP 134/67
[2018-07-07] MEDS: morphine 2 MG/ML inj. syringe IV PRN ×2 (03:30→08:58)
[2018-07-07 03:31] LABS: BASOPHILS % (AUTO) 0.6 % (0-1); EOSINOPHILS # (AUTO) 0.2 X10'3 (0-0.9); EOSINOPHILS % (AUTO) 2.7 % (0-6); HEMATOCRIT 35.4 % (42.0-52.0); HEMOGLOBIN 11.6 g/dl (14.0-17.9); LYMPHOCYTES # (AUTO) 2.1 X10'3 (1.1-4.8); LYMPHOCYTES % (AUTO) 29.2 % (21-51); MEAN CORPUSCULAR HEMOGLOBIN 30.2 PG (27.0-31.0); MEAN CORPUSCULAR HGB CONC 32.8 % (33.0-36.5); MEAN PLATELET VOLUME 7.8 FL (7.4-10.4); MONOCYTES # (AUTO) 0.6 X10'3 (0-0.9); MONOCYTES % (AUTO) 7.7 % (2-12); NEUTROPHILS # (AUTO) 4.4 X10'3 (1.8-7.7); NEUTROPHILS % (AUTO) 59.8 % (42-75); PLATELET COUNT 268 X10'3 (140-440); RED BLOOD COUNT 3.85 X10'6 (4.70-6.10); RED CELL DISTRIBUTION WIDTH 13.8 % (11.5-14.5); WHITE BLOOD COUNT 7.3 X10'3 (4.5-11.0)
[2018-07-07 03:37] LABS: ALANINE AMINOTRANSFERASE 20 U/L (12-78); ALBUMIN 3.4 G/DL (3.4-5.0); ALKALINE PHOSPHATASE 57 IU/L (46-116); ANION GAP 7 (8-16); ASPARTATE AMINO TRANSFERASE 15 U/L (10-37); BILIRUBIN,TOTAL 0.2 MG/DL (0.1-1.0); BLOOD UREA NITROGEN 16 MG/DL (7-18); CALCIUM 8.3 MG/DL (8.5-10.1); CHLORIDE 107 MMOL/L (99-107); CREATININE 1.23 MG/DL (0.60-1.10); GLUCOSE 94 MG/DL (70-104); SODIUM 143 MMOL/L (135-145); TOTAL CARBON DIOXIDE 29.4 MMOL/L (24-32); TOTAL PROTEIN 6.7 G/DL (6.4-8.2); eGFR 61 ML/MIN
[2018-07-07 03:40] LABS: MAGNESIUM 2.2 MG/DL (1.5-2.4)
[2018-07-07 07:00] VITALS: BP 153/83
[2018-07-07] MEDS ORDERED: valacyclovir 500mg tablet PO SCH (08:00)
[2018-07-07] MEDS ORDERED: enoxaparin 40mg/0.4ml syringe SUBCUT SCH (08:00)
[2018-07-07] MEDS ORDERED: duloxetine 30mg CAPSULE.DR PO SCH (08:00)
[2018-07-07] MEDS ORDERED: VALACYCLOVIR HCL 500 MG PO SCH (08:00)
[2018-07-07] MEDS: famotidine 20mg tablet PO SCH (08:32)
[2018-07-07] MEDS: diazepam 2mg tablet PO SCH (08:32)
[2018-07-07] MEDS: lamoTRIgine 100mg tablet PO SCH (08:32)
[2018-07-07] MEDS: terazosin 5mg capsule PO SCH (08:32)
[2018-07-07] MEDS: metFORMIN 500mg tablet PO SCH (08:33)
[2018-07-07] MEDS ORDERED: mag hydrox/Alum hydrox/simeth 30ml oral suspension PO PRN (09:50)
== END 2018-07-07 15:00 | disposition home or self-care (01) ==
LOC: ER 15:09 → ED HOLD 16:21 → PCU 3S 17:00
PROVIDERS: ADMIT Internal Medicine; ATTEND Internal Medicine
DX: R07.89 Other chest pain (principal); I25.119 Atherosclerotic heart disease of native coronary artery with unspecified angina pectoris; E11.9 Type 2 diabetes mellitus without complications; E78.5 Hyperlipidemia, unspecified; I10 Essential (primary) hypertension; F12.90 Cannabis use, unspecified, uncomplicated; F20.9 Schizophrenia, unspecified; I48.2 Chronic atrial fibrillation; F41.9 Anxiety disorder, unspecified; M54.9 Dorsalgia, unspecified; G89.29 Other chronic pain; F32.9 Major depressive disorder, single episode, unspecified; J44.9 Chronic obstructive pulmonary disease, unspecified; K21.9 Gastro-esophageal reflux disease without esophagitis; I65.29 Occlusion and stenosis of unspecified carotid artery; E66.01 Morbid (severe) obesity due to excess calories; Z86.79 Personal history of other diseases of the circulatory system; Z60.9 Problem related to social environment, unspecified; Z73.3 Stress, not elsewhere classified; Z79.01 Long term (current) use of anticoagulants; Z86.73 Personal history of transient ischemic attack (TIA), and cerebral infarction without residual deficits
CPT/HCPCS: 36415; 71045; 80053; 82948; 83036; 83735; 84484; 85025; 85379; 85610; 85730; 87070; 93005; 96374; 96376; 99285; G0378; J1815; J2270

== ENCOUNTER 2019-04-30 05:35 | Day surgery (SDC) | payer MEDICARE, OTHER ==
[~2019-04-30] VITALS: Ht 190.5 cm; Wt 123.5 kg
[2019-04-30] VITALS (11 sets, daily range): BP systolic 93–144; BP diastolic 46–78
[~2019-04-30 05:35] MED LIST changes: -APAP; -DIAZEPAM 2 MG; +DULO-31 PO; -ELIQUIS 5 MG; -FLECAINIDE ACETATE 100 MG; +GABA800T11 PO; -GABA800T2 PO; -GABAPENTIN 800 MG; -HYDROCODONE; -LISINOPRIL 5 MG; -METR500T4 PO; -OXYBUTYNIN CHLOR; -TERAZOSIN HCL 10 MG; -TETR-58 PO; -VALA1POW PO; -VALACYCLOVIR HCL 500 MG
[2019-04-30] MEDS ORDERED: LORazepam 0.5 MG tablet PO PRN (05:55)
[2019-04-30] MEDS ORDERED: normal saline 1000ml 1,000 ML IV SCH (05:55)
[2019-04-30] MEDS ORDERED: diphenhydrAMINE 25mg capsule PO PRN (05:55)
[2019-04-30] MEDS ORDERED: DILT120C95 PO (06:28)
[2019-04-30] MEDS ORDERED: DIAZ2TAB3 PO (06:28)
[2019-04-30] MEDS ORDERED: CINN500C15 PO (06:28)
[2019-04-30] MEDS ORDERED: FLEC100T2 PO (06:28)
[2019-04-30] MEDS ORDERED: NITR0.4T51 SL (06:28)
[2019-04-30] MEDS ORDERED: LISI-604 PO (06:28)
[2019-04-30] MEDS ORDERED: MONT10TA21 PO (06:28)
[2019-04-30] MEDS ORDERED: APIX5TAB3 PO (06:28)
[2019-04-30] MEDS ORDERED: CHOL10002 PO (06:28)
[2019-04-30] MEDS ORDERED: FLAX100015 PO (06:28)
[2019-04-30] MEDS ORDERED: MULT-1180 PO (06:28)
[2019-04-30] MEDS ORDERED: VITA1CAP19 PO (06:28)
[2019-04-30] MEDS ORDERED: CETI-102 PO (06:28)
[2019-04-30] MEDS ORDERED: VALA500T37 PO (06:28)
[2019-04-30 06:32] LABS: BASOPHILS # (AUTO) 0.1 X10'3 (0-0.2); EOSINOPHILS # (AUTO) 0.2 X10'3 (0-0.9); EOSINOPHILS % (AUTO) 3.3 % (0-6); HEMATOCRIT 39.8 % (42.0-52.0); HEMOGLOBIN 13.7 g/dl (14.0-17.9); LYMPHOCYTES # (AUTO) 2.2 X10'3 (1.1-4.8); LYMPHOCYTES % (AUTO) 31.2 % (21-51); MEAN CORPUSCULAR HEMOGLOBIN 31.4 PG (27.0-31.0); MEAN CORPUSCULAR HGB CONC 34.5 g/dL (33.0-36.5); MEAN CORPUSCULAR VOLUME 91.1 FL (78-98); MEAN PLATELET VOLUME 7.7 FL (7.4-10.4); MONOCYTES # (AUTO) 0.6 X10'3 (0-0.9); MONOCYTES % (AUTO) 8.1 % (2-12); NEUTROPHILS # (AUTO) 3.9 X10'3 (1.8-7.7); NEUTROPHILS % (AUTO) 56.4 % (42-75); PLATELET COUNT 254 X10'3 (140-440); RED BLOOD COUNT 4.37 X10'6 (4.70-6.10); RED CELL DISTRIBUTION WIDTH 13.3 % (11.5-14.5); WHITE BLOOD COUNT 6.9 X10'3 (4.5-11.0)
[2019-04-30 06:45] LABS: ALBUMIN 4.9 G/DL (3.4-5.0); ANION GAP 9 (8-16); BLOOD UREA NITROGEN 16 MG/DL (7-18); CALCIUM 9.5 MG/DL (8.5-10.1); CHLORIDE 96 MMOL/L (99-107); CREATININE 1.07 MG/DL (0.60-1.10); GLUCOSE 94 MG/DL (70-104); POTASSIUM 3.8 MMOL/L (3.5-5.1); SODIUM 133 MMOL/L (135-145); TOTAL CARBON DIOXIDE 27.8 MMOL/L (24-32); eGFR 71 ML/MIN
[2019-04-30] MEDS ORDERED: heparin 1,000unit/ml 10ml vial 10 ML ONE (07:28)
[2019-04-30] MEDS ORDERED: iohexol 350 MG/ML 50ML vial IV ONE (07:28)
[2019-04-30] MEDS ORDERED: LIDOcaine 1% (10mg/ml)w/preservative injection 20ml MDV ONE (07:28)
[2019-04-30] MEDS ORDERED: verapamil 2.5 mg/ml inj IV ONE (07:28)
[2019-04-30] MEDS ORDERED: fentaNYL/PF 50MCG/1 ML 2ML syringe ONE (07:28)
[2019-04-30] MEDS ORDERED: iohexol 350MG/ML 100ml bottle IV ONE (07:28)
[2019-04-30] MEDS ORDERED: midazolam 2 mg/2 ml injection ONE (07:28)
[2019-04-30] MEDS ORDERED: nitroGLYCERIN-Tridil 50MG/D5W 250 ML IV ONE (07:28)
[2019-04-30] MEDS ORDERED: DOPamine 400mg/D5W 250ml 250 ML IV ONE (09:02)
[2019-04-30 15:01] LABS: ISTAT HGB ART 10.9 g/dl (14.0-18.0); ISTAT Hct ART 32 %PCV (42-52); ISTAT O2 SATURATION ARTERIAL 95 % (95-98); ISTAT SOURCE ART
[2019-04-30 15:01] LABS: ISTAT Hct MIX 32 %PCV (42-52); ISTAT O2 SATURATION MIX VENOUS 74 % (60-80); ISTAT SOURCE MIX
== END 2019-04-30 14:00 | disposition home or self-care (01) ==
LOC: SSTAY O 05:35
PROVIDERS: ATTEND Internal Medicine Cardiovascular Disease
DX: I25.118 Atherosclerotic heart disease of native coronary artery with other forms of angina pectoris (principal); E11.9 Type 2 diabetes mellitus without complications; I10 Essential (primary) hypertension; E78.5 Hyperlipidemia, unspecified; I48.0 Paroxysmal atrial fibrillation; I27.20 Pulmonary hypertension, unspecified; I48.91 Unspecified atrial fibrillation; B18.2 Chronic viral hepatitis C; J45.909 Unspecified asthma, uncomplicated; F31.81 Bipolar II disorder; Z86.73 Personal history of transient ischemic attack (TIA), and cerebral infarction without residual deficits; Z79.01 Long term (current) use of anticoagulants; Z79.899 Other long term (current) drug therapy; Z79.84 Long term (current) use of oral hypoglycemic drugs; Z98.890 Other specified postprocedural states; Z88.8 Allergy status to other drugs, medicaments and biological substances; Z82.49 Family history of ischemic heart disease and other diseases of the circulatory system
CPT/HCPCS: 36415; 80048; 82803; 82948; 85014; 85025; 85610; 93005; 93460; 99152; 99153; C1769; C1894; J1265; J1644; J2001; J2250; J3010; Q0163; Q9967; A4620; A5120; A6258; J3490; J7030

== ENCOUNTER 2019-05-26 21:37 | Emergency (ER) | payer MEDICARE, OTHER ==
[~2019-05-26] VITALS: Ht 190.5 cm; Wt 128.4 kg
[~2019-05-26 21:37] MED LIST changes: -ALBU8.5H8 IH; -BISM262T27 PO; +CETI-102 PO; +CHOL10002 PO; +CINN500C15 PO; -DIAZ2TAB PO; +DIAZ2TAB3 PO; +DILT120C95 PO; +FLAX100015 PO; +FLEC100T2 PO; +MULT-1180 PO; -NITR0.4T48 SL; +NITR0.4T51 SL; -OMEP20TA5 PO; -SOTA80TA73 PO; +VALA500T37 PO; +VITA1CAP19 PO
[2019-05-26] MEDS ORDERED: normal saline 1000ML IV soln IVB ONE (22:10)
[2019-05-26] MEDS ORDERED: ondansetron/PF 4mg/2ml inj IV ONE (22:10)
[2019-05-26 22:12] LABS: CLARITY,URINE CLEAR (Clear); COLOR,URINE YELLOW (Yellow); GLUCOSE, URINE NEGATIVE (Neg); KETONES,URINE NEGATIVE (Neg); LEUKOCYTE ESTERASE ,URINE NEGATIVE (Neg); NITRITES, URINE NEGATIVE (Neg); OCCULT BLOOD,URINE TRACE-INTACT (Neg); PH,URINE 5.5 (4.8-8.0); PROTEIN,URINE NEGATIVE (Neg); UA COLLECTION TYPE CLN CATCH MIDSTREAM; UROBILINOGEN,URINE 0.2 E.U/dL (0.2-1.0)
[2019-05-26 22:18] LABS: BACTERIA,URINE NONE SEEN /HPF (Neg); MUCUS STRANDS NONE SEEN /LPF (Neg); RBC,URINE 0-2 /HPF (0-2); SQUAMOUS EPITHELIAL CELL,UR NONE SEEN /LPF (FEW); WBC,URINE NONE SEEN /HPF (0-4)
[2019-05-26 22:23] LABS: BASOPHILS % (AUTO) 0.5 % (0-1); EOSINOPHILS # (AUTO) 0.3 X10'3 (0-0.9); HEMATOCRIT 30.1 % (42.0-52.0); HEMOGLOBIN 10.4 g/dl (14.0-17.9); LYMPHOCYTES # (AUTO) 2.4 X10'3 (1.1-4.8); LYMPHOCYTES % (AUTO) 26.8 % (21-51); MEAN CORPUSCULAR HEMOGLOBIN 31.9 PG (27.0-31.0); MEAN CORPUSCULAR HGB CONC 34.7 g/dL (33.0-36.5); MEAN CORPUSCULAR VOLUME 91.9 FL (78-98); MEAN PLATELET VOLUME 7.4 FL (7.4-10.4); MONOCYTES # (AUTO) 0.8 X10'3 (0-0.9); MONOCYTES % (AUTO) 8.9 % (2-12); NEUTROPHILS # (AUTO) 5.6 X10'3 (1.8-7.7); NEUTROPHILS % (AUTO) 60.8 % (42-75); PLATELET COUNT 205 X10'3 (140-440); RED BLOOD COUNT 3.27 X10'6 (4.70-6.10); RED CELL DISTRIBUTION WIDTH 13.2 % (11.5-14.5); WHITE BLOOD COUNT 9.1 X10'3 (4.5-11.0)
[2019-05-26] MEDS: morphine 4 MG/ML inj SYRINge IV PRN ×2 (22:29→23:07)
[2019-05-26 22:38] LABS: ALANINE AMINOTRANSFERASE 31 U/L (12-78); ALBUMIN 4.2 G/DL (3.4-5.0); ALBUMIN/GLOBULIN RATIO 1.4 (1.1-1.5); ALKALINE PHOSPHATASE 57 IU/L (46-116); ANION GAP 9 (8-16); ASPARTATE AMINO TRANSFERASE 27 U/L (10-37); BILIRUBIN,TOTAL 0.7 MG/DL (0.1-1.0); BLOOD UREA NITROGEN 10 MG/DL (7-18); CALCIUM 8.1 MG/DL (8.5-10.1); CHLORIDE 95 MMOL/L (99-107); GLUCOSE 89 MG/DL (70-104); LIPASE 250 U/L (73-393); POTASSIUM 3.4 MMOL/L (3.5-5.1); SODIUM 129 MMOL/L (135-145); TOTAL PROTEIN 7.3 G/DL (6.4-8.2); eGFR 77 ML/MIN
[2019-05-26] MEDS ORDERED: ISOS30TA10 PO (22:41)
[2019-05-26] MEDS ORDERED: ATOR20TA PO (22:41)
[2019-05-26] MEDS ORDERED: ketorolac trometh. 30mg/ml inj. IV ONE (23:05)
[2019-05-26] MEDS ORDERED: ONDA4TAB6 PO (23:07)
[2019-05-26] MEDS ORDERED: HYDR-4383 PO (23:07)
[2019-05-26 23:44] VITALS: BP 135/61
== END 2019-05-26 23:45 | disposition home or self-care (01) ==
LOC: ER 21:38
DX: E87.1 Hypo-osmolality and hyponatremia (principal); R19.7 Diarrhea, unspecified; R10.33 Periumbilical pain; R63.0 Anorexia; E11.9 Type 2 diabetes mellitus without complications; I48.91 Unspecified atrial fibrillation; I25.10 Atherosclerotic heart disease of native coronary artery without angina pectoris; I10 Essential (primary) hypertension; J44.9 Chronic obstructive pulmonary disease, unspecified; K21.9 Gastro-esophageal reflux disease without esophagitis; G89.29 Other chronic pain; F41.9 Anxiety disorder, unspecified; F32.9 Major depressive disorder, single episode, unspecified; F20.9 Schizophrenia, unspecified; F12.90 Cannabis use, unspecified, uncomplicated; Z87.19 Personal history of other diseases of the digestive system; Z79.4 Long term (current) use of insulin; Z79.899 Other long term (current) drug therapy; Z88.8 Allergy status to other drugs, medicaments and biological substances; Z88.6 Allergy status to analgesic agent; Z86.73 Personal history of transient ischemic attack (TIA), and cerebral infarction without residual deficits; Z86.718 Personal history of other venous thrombosis and embolism; Z87.440 Personal history of urinary (tract) infections; Z86.19 Personal history of other infectious and parasitic diseases; Z95.5 Presence of coronary angioplasty implant and graft; Z98.890 Other specified postprocedural states; Z86.79 Personal history of other diseases of the circulatory system; Z86.69 Personal history of other diseases of the nervous system and sense organs
CPT/HCPCS: 36415; 74176; 80053; 81001; 83690; 85025; 96361; 96374; 96375; 96376; 99284; J1885; J2270; J2405; J7030

== ENCOUNTER 2019-06-06 17:46 | Emergency (ER) | payer MEDICARE, OTHER ==
[~2019-06-06] VITALS: Ht 190.5 cm; Wt 124.2 kg
[~2019-06-06 17:46] MED LIST changes: +ATOR20TA PO; -DIAZ2TAB3 PO; -DILT120C95 PO; -DULO-31 PO; +HYDR-4383 PO; +ISOS30TA10 PO; -LAMO100T2 PO; +ONDA4TAB6 PO; -OXYB15TA PO
[2019-06-06 18:58] LABS: BASOPHILS % (AUTO) 0.6 % (0-1); EOSINOPHILS # (AUTO) 0.1 X10'3 (0-0.9); EOSINOPHILS % (AUTO) 2.1 % (0-6); HEMATOCRIT 30.6 % (42.0-52.0); HEMOGLOBIN 10.3 g/dl (14.0-17.9); LYMPHOCYTES # (AUTO) 1.3 X10'3 (1.1-4.8); LYMPHOCYTES % (AUTO) 18.9 % (21-51); MEAN CORPUSCULAR HEMOGLOBIN 31.3 PG (27.0-31.0); MEAN CORPUSCULAR HGB CONC 33.7 g/dL (33.0-36.5); MEAN CORPUSCULAR VOLUME 92.8 FL (78-98); MEAN PLATELET VOLUME 7.6 FL (7.4-10.4); MONOCYTES # (AUTO) 0.5 X10'3 (0-0.9); NEUTROPHILS % (AUTO) 71.4 % (42-75); PLATELET COUNT 218 X10'3 (140-440); RED CELL DISTRIBUTION WIDTH 12.8 % (11.5-14.5)
[2019-06-06 19:13] LABS: ALANINE AMINOTRANSFERASE 25 U/L (12-78); ALBUMIN 3.9 G/DL (3.4-5.0); ALBUMIN/GLOBULIN RATIO 1.3 (1.1-1.5); ALKALINE PHOSPHATASE 53 IU/L (46-116); ANION GAP 8 (8-16); ASPARTATE AMINO TRANSFERASE 20 U/L (10-37); BILIRUBIN,TOTAL 0.5 MG/DL (0.1-1.0); BLOOD UREA NITROGEN 14 MG/DL (7-18); BUN/CREATININE RATIO 12.5 (5.4-32.0); CALCIUM 8.5 MG/DL (8.5-10.1); CHLORIDE 98 MMOL/L (99-107); CREATININE 1.12 MG/DL (0.60-1.10); GLUCOSE 113 MG/DL (70-104); SODIUM 134 MMOL/L (135-145); TOTAL CARBON DIOXIDE 27.6 MMOL/L (24-32); eGFR 68 ML/MIN
[2019-06-06 19:58] LABS: CLARITY,URINE CLEAR (Clear); COLOR,URINE YELLOW (Yellow); GLUCOSE, URINE NEGATIVE (Neg); KETONES,URINE NEGATIVE (Neg); LEUKOCYTE ESTERASE ,URINE NEGATIVE (Neg); NITRITES, URINE NEGATIVE (Neg); OCCULT BLOOD,URINE NEGATIVE (Neg); PROTEIN,URINE NEGATIVE (Neg); UROBILINOGEN,URINE 0.2 E.U/dL (0.2-1.0)
[2019-06-06 20:01] LABS: UA COLLECTION TYPE CLN CATCH MIDSTREAM
[2019-06-06] MEDS ORDERED: ondansetron/PF 4mg/2ml inj IV ONE (22:40)
[2019-06-06] MEDS ORDERED: morphine 4 MG/ML inj SYRINge IV ONE (22:40)
[2019-06-07 00:34] VITALS: BP 145/59
== END 2019-06-07 00:35 | disposition home or self-care (01) ==
LOC: ER 17:47
DX: R10.11 Right upper quadrant pain (principal); I48.91 Unspecified atrial fibrillation; I25.10 Atherosclerotic heart disease of native coronary artery without angina pectoris; I10 Essential (primary) hypertension; J44.9 Chronic obstructive pulmonary disease, unspecified; K21.9 Gastro-esophageal reflux disease without esophagitis; G89.29 Other chronic pain; F41.9 Anxiety disorder, unspecified; F32.9 Major depressive disorder, single episode, unspecified; F20.9 Schizophrenia, unspecified; F12.90 Cannabis use, unspecified, uncomplicated; Z86.73 Personal history of transient ischemic attack (TIA), and cerebral infarction without residual deficits; Z98.61 Coronary angioplasty status; Z98.890 Other specified postprocedural states; Z88.6 Allergy status to analgesic agent; Z88.8 Allergy status to other drugs, medicaments and biological substances; Z79.84 Long term (current) use of oral hypoglycemic drugs; Z79.899 Other long term (current) drug therapy; Z95.9 Presence of cardiac and vascular implant and graft, unspecified
CPT/HCPCS: 36415; 74176; 80053; 81003; 85025; 85610; 96374; 96375; 99284; J2270; J2405

== ENCOUNTER 2019-09-09 15:21 | Emergency (ER) | payer MEDICARE, OTHER ==
[~2019-09-09] VITALS: Ht 190.5 cm; Wt 122.7 kg
[2019-09-09 16:12] LABS: BASOPHILS # (AUTO) 0.1 X10'3 (0-0.2); EOSINOPHILS # (AUTO) 0.1 X10'3 (0-0.9); HEMATOCRIT 37.7 % (42.0-52.0); HEMOGLOBIN 12.9 g/dl (14.0-17.9); LYMPHOCYTES # (AUTO) 1.4 X10'3 (1.1-4.8); LYMPHOCYTES % (AUTO) 19.7 % (21-51); MEAN CORPUSCULAR HEMOGLOBIN 31.6 PG (27.0-31.0); MEAN CORPUSCULAR HGB CONC 34.2 g/dL (33.0-36.5); MEAN CORPUSCULAR VOLUME 92.2 FL (78-98); MEAN PLATELET VOLUME 7.1 FL (7.4-10.4); MONOCYTES # (AUTO) 0.6 X10'3 (0-0.9); MONOCYTES % (AUTO) 9.1 % (2-12); NEUTROPHILS # (AUTO) 4.8 X10'3 (1.8-7.7); NEUTROPHILS % (AUTO) 68.2 % (42-75); PLATELET COUNT 261 X10'3 (140-440); RED BLOOD COUNT 4.09 X10'6 (4.70-6.10); RED CELL DISTRIBUTION WIDTH 13.6 % (11.5-14.5)
[2019-09-09] MEDS ORDERED: nitroGLYCERIN 0.4mg SUBLingual tab SL PRN (16:20)
[2019-09-09 16:26] LABS: ALANINE AMINOTRANSFERASE 24 U/L (12-78); ALBUMIN 4.2 G/DL (3.4-5.0); ALBUMIN/GLOBULIN RATIO 1.3 (1.1-1.5); ALKALINE PHOSPHATASE 67 IU/L (46-116); ANION GAP 5 (8-16); ASPARTATE AMINO TRANSFERASE 15 U/L (10-37); BILIRUBIN,TOTAL 0.4 MG/DL (0.1-1.0); BLOOD UREA NITROGEN 12 MG/DL (7-18); BUN/CREATININE RATIO 8.2 (5.4-32.0); CALCIUM 8.5 MG/DL (8.5-10.1); CHLORIDE 98 MMOL/L (99-107); CREATININE 1.47 MG/DL (0.60-1.10); GLUCOSE 122 MG/DL (70-104); POTASSIUM 4.1 MMOL/L (3.5-5.1); SODIUM 134 MMOL/L (135-145); TOTAL CARBON DIOXIDE 31.3 MMOL/L (24-32); TOTAL PROTEIN 7.4 G/DL (6.4-8.2); eGFR 49 ML/MIN
[2019-09-09] MEDS ORDERED: normal saline 1000ML IV soln IVB ONE (16:35)
[2019-09-09 19:18] VITALS: BP 130/71
== END 2019-09-09 19:19 | disposition home or self-care (01) ==
LOC: ER 15:22
DX: I20.8 Other forms of angina pectoris (principal); R10.13 Epigastric pain; R07.89 Other chest pain; I48.91 Unspecified atrial fibrillation; I25.10 Atherosclerotic heart disease of native coronary artery without angina pectoris; I10 Essential (primary) hypertension; I25.2 Old myocardial infarction; J44.9 Chronic obstructive pulmonary disease, unspecified; K21.9 Gastro-esophageal reflux disease without esophagitis; G89.29 Other chronic pain; F12.90 Cannabis use, unspecified, uncomplicated; Z86.73 Personal history of transient ischemic attack (TIA), and cerebral infarction without residual deficits; Z95.5 Presence of coronary angioplasty implant and graft; Z88.8 Allergy status to other drugs, medicaments and biological substances; Z88.6 Allergy status to analgesic agent; Z79.899 Other long term (current) drug therapy
CPT/HCPCS: 36415; 71045; 80053; 83880; 84484; 85025; 93005; 99284; J7030

== ENCOUNTER 2020-09-03 15:16 | Emergency (ER) | payer MEDICARE, MEDICAID ==
[~2020-09-03] VITALS: Ht 190.5 cm; Wt 115.9 kg
[~2020-09-03 15:16] MED LIST changes: +CARV3.122 PO; -CETI-102 PO; -CHOL10002 PO; -CINN500C15 PO; -FLAX100015 PO; +FLO0.4C PO; -HYDR-4383 PO; -ISOS30TA10 PO; +ISOS60TA4 PO; +LIPA1CAP18 PO; +METO5TAB98 PO; -MULT-1180 PO; -ONDA4TAB6 PO; +POTA20TA10 PO; -RANI150C11 PO; -TERA10CA4 PO; -VALA500T37 PO; +VALA500T41 PO; -VITA1CAP19 PO
--- NOTE | 2020-09-03 15:26 | NUR ---
EKG 1527
[2020-09-03 16:26] VITALS: BP 117/68
--- NOTE | 2020-09-03 16:28 | NUR ---
Good PA at bedside.
== END 2020-09-03 16:40 | disposition home or self-care (01) ==
LOC: ER 15:17
DX: I10 Essential (primary) hypertension (principal); I48.91 Unspecified atrial fibrillation; J44.9 Chronic obstructive pulmonary disease, unspecified; E11.9 Type 2 diabetes mellitus without complications; G89.29 Other chronic pain; M54.9 Dorsalgia, unspecified; F41.9 Anxiety disorder, unspecified; F32.9 Major depressive disorder, single episode, unspecified; F20.9 Schizophrenia, unspecified; Z88.8 Allergy status to other drugs, medicaments and biological substances
CPT/HCPCS: 93005; 99283

== ENCOUNTER 2021-02-07 21:54 | Emergency (ER) | payer MEDICARE, MEDICAID ==
[~2021-02-07] VITALS: Ht 190.5 cm; Wt 117.7 kg
[~2021-02-07 21:54] MED LIST changes: -ISOS60TA4 PO; +ISOS60TA71 PO; -LISI-604 PO; +LISI-790 PO
[2021-02-07 22:34] LABS: BASOPHILS % (AUTO) 0.4 % (0-1); EOSINOPHILS # (AUTO) 0.2 X10'3 (0-0.9); EOSINOPHILS % (AUTO) 2.9 % (0-6); HEMATOCRIT 33.4 % (42.0-52.0); HEMOGLOBIN 11.6 g/dl (14.0-17.9); LYMPHOCYTES # (AUTO) 2.4 X10'3 (1.1-4.8); LYMPHOCYTES % (AUTO) 28.8 % (21-51); MEAN CORPUSCULAR HEMOGLOBIN 32.9 PG (27.0-31.0); MEAN CORPUSCULAR HGB CONC 34.6 g/dL (33.0-36.5); MEAN PLATELET VOLUME 7.4 FL (7.4-10.4); MONOCYTES # (AUTO) 0.6 X10'3 (0-0.9); MONOCYTES % (AUTO) 7.1 % (2-12); NEUTROPHILS # (AUTO) 5.1 X10'3 (1.8-7.7); NEUTROPHILS % (AUTO) 60.8 % (42-75); PLATELET COUNT 217 X10'3 (140-440); RED BLOOD COUNT 3.52 X10'6 (4.70-6.10); RED CELL DISTRIBUTION WIDTH 13.1 % (11.5-14.5); WHITE BLOOD COUNT 8.3 X10'3 (4.5-11.0)
[2021-02-07 22:42] LABS: ALANINE AMINOTRANSFERASE 22 U/L (12-78); ALBUMIN 3.8 G/DL (3.4-5.0); ALBUMIN/GLOBULIN RATIO 1.3 (1.1-1.5); ALKALINE PHOSPHATASE 76 IU/L (46-116); ANION GAP 7 (8-16); ASPARTATE AMINO TRANSFERASE 24 U/L (10-37); BILIRUBIN,TOTAL 0.6 MG/DL (0.1-1.0); BLOOD UREA NITROGEN 9 MG/DL (7-18); BUN/CREATININE RATIO 10.1 (5.4-32.0); CALCIUM 8.1 MG/DL (8.5-10.1); CHLORIDE 97 MMOL/L (99-107); CREATININE 0.89 MG/DL (0.60-1.10); GLUCOSE 190 MG/DL (70-104); POTASSIUM 3.5 MMOL/L (3.5-5.1); SODIUM 130 MMOL/L (135-145); TOTAL CARBON DIOXIDE 25.8 MMOL/L (24-32); TOTAL PROTEIN 6.8 G/DL (6.4-8.2); eGFR 88 ML/MIN
[2021-02-08 02:55] VITALS: BP 127/76
[2021-02-08] MEDS ORDERED: CARV6.253 PO (15:23)
[2021-02-08] MEDS ORDERED: ATOR40TA72 PO (15:23)
[2021-02-08] MEDS ORDERED: LISI10TA27 PO (15:23)
[2021-02-08] MEDS ORDERED: METF-438 PO (15:23)
[2021-02-08] MEDS ORDERED: CHOL100025 PO (15:31)
[2021-02-08] MEDS ORDERED: MULT-1085 PO (15:31)
[2021-02-08] MEDS ORDERED: ZINC50TA67 PO (15:31)
[2021-02-08] MEDS ORDERED: ASCO-134 PO (15:31)
== END 2021-02-08 03:04 | disposition left against medical advice (07) ==
LOC: ER 21:54
DX: R07.89 Other chest pain (principal); I48.91 Unspecified atrial fibrillation; G40.909 Epilepsy, unspecified, not intractable, without status epilepticus; I25.10 Atherosclerotic heart disease of native coronary artery without angina pectoris; I10 Essential (primary) hypertension; G89.29 Other chronic pain; E11.9 Type 2 diabetes mellitus without complications; I25.2 Old myocardial infarction; F12.90 Cannabis use, unspecified, uncomplicated; Z79.01 Long term (current) use of anticoagulants; Z88.6 Allergy status to analgesic agent; Z88.8 Allergy status to other drugs, medicaments and biological substances; Z87.442 Personal history of urinary calculi; Z98.890 Other specified postprocedural states
CPT/HCPCS: 36415; 71045; 80053; 83880; 84484; 85025; 93005; 99285

== ENCOUNTER 2021-02-08 12:18 | Observation (INO) | payer MEDICARE, MEDICAID ==
[~2021-02-08] VITALS: Ht 190.5 cm; Wt 117.7 kg
[2021-02-08 13:04] LABS: BASOPHILS % (AUTO) 0.6 % (0-1); EOSINOPHILS # (AUTO) 0.2 X10'3 (0-0.9); EOSINOPHILS % (AUTO) 2.5 % (0-6); HEMATOCRIT 35.5 % (42.0-52.0); HEMOGLOBIN 12.1 g/dl (14.0-17.9); LYMPHOCYTES # (AUTO) 1.9 X10'3 (1.1-4.8); MEAN CORPUSCULAR HEMOGLOBIN 32.5 PG (27.0-31.0); MEAN CORPUSCULAR HGB CONC 34.2 g/dL (33.0-36.5); MEAN PLATELET VOLUME 7.4 FL (7.4-10.4); MONOCYTES # (AUTO) 0.6 X10'3 (0-0.9); MONOCYTES % (AUTO) 8.4 % (2-12); NEUTROPHILS # (AUTO) 4.5 X10'3 (1.8-7.7); NEUTROPHILS % (AUTO) 62.5 % (42-75); PLATELET COUNT 232 X10'3 (140-440); RED BLOOD COUNT 3.74 X10'6 (4.70-6.10); RED CELL DISTRIBUTION WIDTH 13.2 % (11.5-14.5); WHITE BLOOD COUNT 7.2 X10'3 (4.5-11.0)
[2021-02-08 13:15] LABS: ALANINE AMINOTRANSFERASE 26 U/L (12-78); ALBUMIN 3.9 G/DL (3.4-5.0); ALBUMIN/GLOBULIN RATIO 1.3 (1.1-1.5); ALKALINE PHOSPHATASE 79 IU/L (46-116); ANION GAP 11 (8-16); ASPARTATE AMINO TRANSFERASE 22 U/L (10-37); BILIRUBIN,TOTAL 0.5 MG/DL (0.1-1.0); BLOOD UREA NITROGEN 7 MG/DL (7-18); BUN/CREATININE RATIO 8.3 (5.4-32.0); CALCIUM 7.9 MG/DL (8.5-10.1); CHLORIDE 99 MMOL/L (99-107); CREATININE 0.84 MG/DL (0.60-1.10); GLUCOSE 111 MG/DL (70-104); POTASSIUM 3.8 MMOL/L (3.5-5.1); SODIUM 135 MMOL/L (135-145); TOTAL CARBON DIOXIDE 24.6 MMOL/L (24-32); eGFR > 90 ML/MIN
[2021-02-08] MEDS ORDERED: aspirin 81mg tab.chew PO ONE (13:35)
[2021-02-08] MEDS ORDERED: nitroGLYCERIN 0.4mg/hour patch TD ONE (13:35)
[2021-02-08] MEDS ORDERED: dextrose 50%-water 50ml dispensing syringe IV PRN ×2 (15:20)
[2021-02-08] MEDS ORDERED: glucagon, human recombinant 1mg kit SUBCUT PRN (15:20)
[2021-02-08] MEDS ORDERED: magnesium hydroxide 30ml (MOM) UD suspension PO PRN (15:20)
[2021-02-08] MEDS ORDERED: insulin Lispro (HumaLOG) vial - multi-dose SQ SCH (15:20)
[2021-02-08] MEDS ORDERED: ondansetron/PF 4mg/2ml inj IV PRN (15:20)
[2021-02-08] MEDS ORDERED: HYDROcodone/acetaminophen 10/325mg tab PO PRN (15:20)
[2021-02-08] MEDS ORDERED: MESSAGE TO PHARMACY PO ONE (15:20)
[2021-02-08] MEDS ORDERED: dextrose ORAL solution 15 GM/59 ML bottle PO PRN ×2 (15:20)
[2021-02-08] MEDS ORDERED: HYDROcodone/acetaminophen 5mg/325mg tablet PO PRN (15:20)
[2021-02-08] MEDS ORDERED: mag hydrox/Alum hydrox/simeth 30ml oral suspension PO PRN (15:20)
[2021-02-08] MEDS ORDERED: acetaminophen 325mg tablet PO PRN ×2 (15:20)
[2021-02-08] MEDS ORDERED: ATOR40TA72 PO (15:23)
[2021-02-08] MEDS ORDERED: LISI10TA27 PO (15:23)
[2021-02-08] MEDS ORDERED: CARV6.253 PO (15:23)
[2021-02-08] MEDS ORDERED: METF-438 PO (15:23)
[2021-02-08] MEDS ORDERED: ZINC50TA67 PO (15:31)
[2021-02-08] MEDS ORDERED: MULT-1085 PO (15:31)
[2021-02-08] MEDS ORDERED: ASCO-134 PO (15:31)
[2021-02-08] MEDS ORDERED: CHOL100025 PO (15:31)
[2021-02-08 15:53] LABS: HEMOGLOBIN A1C 6.1 % (4.5-6.2)
[2021-02-08 16:12] LABS: D-DIMER < 0.19 MG/L FEU (0-0.50)
--- NOTE | 2021-02-08 17:00 | NUR ---
received report from regulatory affairs portfolio leadermikaela vance
[2021-02-08 17:30] VITALS: BP 107/61
--- NOTE | 2021-02-08 17:30 | NUR ---
received pt into room 311,oriented to surroundings pt c/o dull chest pressure 3/10, non radiating, VSS accu check=93
[2021-02-08 18:00] VITALS: BP 149/85
--- NOTE | 2021-02-08 18:00 | NUR ---
Patient in room MED 311. I have received report from JEREMY Bowser and had the opportunity to ask questions and assume patient care.
--- NOTE | 2021-02-08 18:35 | NUR ---
Problems reprioritized. Patient report given, questions answered & plan of care reviewed with mikaela durbin.
[2021-02-08] MEDS: morphine 2 MG/ML inj. syringe IV PRN (20:14)
[2021-02-08] MEDS: insulin glargine (Lantus) pen - multi-dose SQ SCH (21:00)
--- NOTE | 2021-02-08 21:23 | NUR ---
Page Sent promotional table spacer PAGER ID: [phone] MESSAGE: 311 Raj Kelly new admit from ED. Med recon done. Most important for him right now are gabapentin 800 TID, Floxmax 0.4mg QHS. May I have those orders? [phone] Blanquita
[2021-02-08] MEDS: tamsulosin 0.4mg capsule PO SCH (21:48)
[2021-02-08] MEDS: gabapentin 400mg capsule PO SCH ×2 (21:48→22:00)
[2021-02-08 22:00] VITALS: BP 121/55
[2021-02-09] VITALS (11 sets, daily range): BP systolic 116–162; BP diastolic 60–95
[2021-02-09 01:20] LABS: BASOPHILS % (AUTO) 0.5 % (0-1); EOSINOPHILS # (AUTO) 0.2 X10'3 (0-0.9); EOSINOPHILS % (AUTO) 2.5 % (0-6); HEMATOCRIT 35.7 % (42.0-52.0); HEMOGLOBIN 12.2 g/dl (14.0-17.9); MEAN CORPUSCULAR HEMOGLOBIN 32.5 PG (27.0-31.0); MEAN CORPUSCULAR HGB CONC 34.2 g/dL (33.0-36.5); MEAN CORPUSCULAR VOLUME 95.1 FL (78-98); MEAN PLATELET VOLUME 7.5 FL (7.4-10.4); MONOCYTES # (AUTO) 0.7 X10'3 (0-0.9); NEUTROPHILS # (AUTO) 4.9 X10'3 (1.8-7.7); PLATELET COUNT 208 X10'3 (140-440); RED BLOOD COUNT 3.75 X10'6 (4.70-6.10); WHITE BLOOD COUNT 7.8 X10'3 (4.5-11.0)
[2021-02-09 01:31] LABS: ALBUMIN 3.6 G/DL (3.4-5.0); ANION GAP 9 (8-16); BLOOD UREA NITROGEN 15 MG/DL (7-18); BUN/CREATININE RATIO 18.1 (5.4-32.0); CALCIUM 8.7 MG/DL (8.5-10.1); CHLORIDE 104 MMOL/L (99-107); CREATININE 0.83 MG/DL (0.60-1.10); GLUCOSE 107 MG/DL (70-104); POTASSIUM 3.7 MMOL/L (3.5-5.1); SODIUM 141 MMOL/L (135-145); TOTAL CARBON DIOXIDE 28.4 MMOL/L (24-32); eGFR > 90 ML/MIN
--- NOTE | 2021-02-09 02:06 | NUR ---
Pt had trouble falling asleep, RN skipped 0200 V/S.
[2021-02-09] MEDS: nitroGLYCERIN 0.4mg SUBLingual tab SL PRN ×2 (04:22→07:23)
[2021-02-09] MEDS: morphine 2 MG/ML inj. syringe IV PRN ×4 (04:30→23:24)
--- NOTE | 2021-02-09 06:00 | NUR ---
Problems reprioritized. Patient report given, questions answered & plan of care reviewed with JEREMY Lara.
--- NOTE | 2021-02-09 06:15 | NUR ---
Patient in room MED 311. I have received report from JEREMY Juares and had the opportunity to ask questions and assume patient care.
[2021-02-09] MEDS: gabapentin 400mg capsule PO SCH ×3 (07:23→22:00)
[2021-02-09] MEDS: aspirin 81mg tablet.DR PO SCH (07:25)
[2021-02-09] MEDS ORDERED: nitroGLYCERIN 0.4mg SUBLingual tab SL PRN ×2 (09:20→18:20)
[2021-02-09] MEDS ORDERED: aminophylline 250mg/10ml inj. IV PRN (09:20)
[2021-02-09] MEDS ORDERED: regadenoson 0.4mg/5ml syringe IV PRN (09:20)
[2021-02-09] MEDS ORDERED: metoprolol tartrate 1mg/ml inj IV PRN (09:20)
--- NOTE | 2021-02-09 16:05 | NUR ---
Lexiscan results Called Dr Reich [phone] - per office staff; ok to fax lexiscan results to office. Faxed to [phone]
--- NOTE | 2021-02-09 18:00 | NUR ---
Patient in room MED 311. I have received report from JEREMY Lara and had the opportunity to ask questions and assume patient care.
[2021-02-09] MEDS ORDERED: HYDROcodone/acetaminophen 10/325mg tab PO PRN (18:20)
--- NOTE | 2021-02-09 18:30 | NUR ---
Dr. Reich gave verbal order: NPO after midnight, consent for cath possible with stent, R radial cream. RN will call surgical at [phone] to schedule
--- NOTE | 2021-02-09 18:38 | NUR ---
Problems reprioritized. Patient report given, questions answered & plan of care reviewed with JEREMY Juares.
--- NOTE | 2021-02-09 18:40 | NUR ---
RN called surgical at [phone], advised not to enter surgical order, a slip will be sent to Dr. Reich
[2021-02-09] MEDS: carvedilol 6.25mg tablet PO SCH (20:00)
[2021-02-09] MEDS: flecainide 50mg tablet PO SCH (20:00)
[2021-02-09] MEDS: apixaban 5mg tablet PO SCH (20:00)
[2021-02-09] MEDS: tamsulosin 0.4mg capsule PO SCH (21:00)
[2021-02-09] MEDS: insulin glargine (Lantus) pen - multi-dose SQ SCH (21:00)
[2021-02-10] VITALS (16 sets, daily range): BP systolic 105–148; BP diastolic 58–96
--- NOTE | 2021-02-10 06:00 | NUR ---
Problems reprioritized. Patient report given, questions answered & plan of care reviewed with JEREMY Lara.
[2021-02-10 06:12] LABS: BASOPHILS % (AUTO) 0.4 % (0-1); EOSINOPHILS # (AUTO) 0.2 X10'3 (0-0.9); HEMATOCRIT 39.6 % (42.0-52.0); HEMOGLOBIN 13.3 g/dl (14.0-17.9); LYMPHOCYTES # (AUTO) 1.6 X10'3 (1.1-4.8); LYMPHOCYTES % (AUTO) 21.2 % (21-51); MEAN CORPUSCULAR HGB CONC 33.6 g/dL (33.0-36.5); MEAN CORPUSCULAR VOLUME 95.3 FL (78-98); MEAN PLATELET VOLUME 8.2 FL (7.4-10.4); MONOCYTES # (AUTO) 0.7 X10'3 (0-0.9); MONOCYTES % (AUTO) 9.3 % (2-12); NEUTROPHILS # (AUTO) 5.2 X10'3 (1.8-7.7); NEUTROPHILS % (AUTO) 67.1 % (42-75); PLATELET COUNT 235 X10'3 (140-440); RED BLOOD COUNT 4.15 X10'6 (4.70-6.10); RED CELL DISTRIBUTION WIDTH 13.6 % (11.5-14.5); WHITE BLOOD COUNT 7.7 X10'3 (4.5-11.0)
[2021-02-10 06:21] LABS: ALBUMIN 3.8 G/DL (3.4-5.0); ANION GAP 7 (8-16); BLOOD UREA NITROGEN 10 MG/DL (7-18); BUN/CREATININE RATIO 13.3 (5.4-32.0); CALCIUM 8.4 MG/DL (8.5-10.1); CHLORIDE 104 MMOL/L (99-107); CREATININE 0.75 MG/DL (0.60-1.10); GLUCOSE 110 MG/DL (70-104); POTASSIUM 3.8 MMOL/L (3.5-5.1); SODIUM 140 MMOL/L (135-145); eGFR > 90 ML/MIN
--- NOTE | 2021-02-10 06:40 | NUR ---
Patient in room MED 311. I have received report from JEREMY Juares and had the opportunity to ask questions and assume patient care.
[2021-02-10] MEDS ORDERED: LIDOcaine/PRILOcaine 5gm cream TP ONE (07:42)
[2021-02-10] MEDS ORDERED: montelukast 10mg tablet PO SCH (08:00)
[2021-02-10] MEDS: apixaban 5mg tablet PO SCH (08:00)
[2021-02-10] MEDS ORDERED: ascorbic acid 500mg tablet PO SCH (08:00)
[2021-02-10] MEDS ORDERED: atorvastatin 20mg tablet PO SCH (08:00)
[2021-02-10] MEDS ORDERED: multivitamins, therapeutics tablet PO SCH (08:00)
[2021-02-10] MEDS ORDERED: isosorbide mononitrate 30mg tab.SR.24H PO SCH (08:00)
[2021-02-10] MEDS ORDERED: non-formulary drug (Zinc 1 TAB) PO SCH (08:00)
[2021-02-10] MEDS ORDERED: cholecalciferol (vitamin D3) 1,000 unit (25mcg) tablet PO SCH (08:00)
[2021-02-10] MEDS ORDERED: lisinopril 10 MG tablet PO SCH (08:00)
[2021-02-10] MEDS: gabapentin 400mg capsule PO SCH (08:15)
[2021-02-10] MEDS: carvedilol 6.25mg tablet PO SCH (08:17)
[2021-02-10] MEDS: flecainide 50mg tablet PO SCH (08:20)
[2021-02-10] MEDS: aspirin 81mg tablet.DR PO SCH (08:20)
--- NOTE | 2021-02-10 08:38 | NUR ---
PT refused AM Blood sugar check.
[2021-02-10] MEDS ORDERED: nitroGLYCERIN-Tridil 50MG/D5W 250 ML IV ONE (09:19)
[2021-02-10] MEDS ORDERED: midazolam 1 mg/ML 2ml injection ONE (09:20)
[2021-02-10] MEDS ORDERED: fentaNYL/PF 50MCG/1 ML 2ML syringe ONE (09:20)
[2021-02-10] MEDS ORDERED: LIDOcaine 1% (10mg/ml)w/preservative injection 20ml MDV ONE (09:20)
[2021-02-10] MEDS ORDERED: verapamil 2.5 mg/ml inj IV ONE (09:20)
[2021-02-10] MEDS ORDERED: heparin 1,000unit/ml 10ml vial 10 ML ONE (09:20)
[2021-02-10] MEDS ORDERED: iohexol 350MG/ML 100ml bottle IV ONE (09:21)
[2021-02-10] MEDS ORDERED: iohexol 350 MG/ML 50ML vial IV ONE (09:21)
--- NOTE | 2021-02-10 09:46 | NUR ---
laborer prestressed concrete took patient for heart cath procedure
[2021-02-10] MEDS ORDERED: ISOS60TA71 PO (11:11)
[2021-02-10] MEDS ORDERED: ISOS30TA84 PO (11:11)
--- NOTE | 2021-02-10 12:00 | NUR ---
Pt refused 1200 blood sugar
--- NOTE | 2021-02-10 13:00 | NUR ---
Monitoring for bleeding on R radial access site. All air was removed from vasc band Q15m - covered with band aid and monitoring. Patient remained hemostatically stable.
--- NOTE | 2021-02-10 15:07 | NUR ---
D/C to home Pt is stable for D/C to home per MD orders. PIV was removed from L wrist. All D/C ppwk was reviewed with pt and pt had the opportunity to ask questions and get answers. New RX were sent to [facility] on [address]. Pt has all of his personal belongings. Pt was wheeled out on W/C by nursing staff. Son in law was waiting in private vehicle.
[2021-02-10] MEDS ORDERED: ondansetron 4mg rapidly disintigrating tab PO PRN (15:35)
--- NOTE | 2021-02-11 10:55 | NUR ---
CASE MANAGEMENT DISCHARGE FOLLOW UP: Spoke with pt via telephone. Reports that he is doing okay, does report some low-grade CP/not much, starting new dose of isosorbide this morning; denies SOB, fever/chills, s/sx infection, swelling/bleeding/firmness at radial cath site. Pt states that there is some bruising around the dressing (CDI) of the cath site, will notify MD if bruising gets bigger or if there is any swelling, lumps, oozing, foul odor, redness at cath site. Verbalizes understanding of s/sx requiring further evaluation/emergent assistance. Verbalizes understanding of changes to medications. Verbalizes compliance with MD discharge instructions. Verbalizes understanding of the importance in making/keeping follow-up appointments, will call PMD to have upcoming appointment moved up as it is currently not for a few month. Pt was unaware that he had a f/u with Dr Reich on 02/22/21 @ 1725, he will call his office if it is necessary for him to change appointment times. States no further questions/concerns at this time.
== END 2021-02-10 15:00 | disposition home or self-care (01) ==
LOC: ER 12:19 → ED HOLD 15:18 → INTOOBSV 15:18 → MED 3N 17:28
PROVIDERS: ADMIT Internal Medicine; ATTEND Internal Medicine
DX: I25.119 Atherosclerotic heart disease of native coronary artery with unspecified angina pectoris (principal); I48.0 Paroxysmal atrial fibrillation; I10 Essential (primary) hypertension; E11.40 Type 2 diabetes mellitus with diabetic neuropathy, unspecified; N40.0 Benign prostatic hyperplasia without lower urinary tract symptoms; E78.5 Hyperlipidemia, unspecified; F31.81 Bipolar II disorder; I25.2 Old myocardial infarction; B18.9 Chronic viral hepatitis, unspecified; J44.9 Chronic obstructive pulmonary disease, unspecified; F20.9 Schizophrenia, unspecified; I27.20 Pulmonary hypertension, unspecified; A60.00 Herpesviral infection of urogenital system, unspecified; K85.90 Acute pancreatitis without necrosis or infection, unspecified; G89.29 Other chronic pain; M54.9 Dorsalgia, unspecified; F41.9 Anxiety disorder, unspecified; Z86.73 Personal history of transient ischemic attack (TIA), and cerebral infarction without residual deficits; Z87.891 Personal history of nicotine dependence; Z98.61 Coronary angioplasty status; Z79.01 Long term (current) use of anticoagulants; Z79.899 Other long term (current) drug therapy; Z88.6 Allergy status to analgesic agent; Z88.8 Allergy status to other drugs, medicaments and biological substances
CPT/HCPCS: 36415; 71045; 76937; 78452; 80048; 80053; 82948; 83036; 83880; 84484; 85025; 85379; 87081; 93005; 93017; 93458; 96374; 96376; 99285; A9500; C1769; C1894; G0378; J1644; J1815; J2001; J2250; J2270; J3010; J7030; Q9967; 99152; 99153; A4620; A5120; A6258; J3490; J8597

== ENCOUNTER 2021-03-08 07:05 | Day surgery (SDC) | payer MEDICARE, MEDICAID ==
[~2021-03-08] VITALS: Ht 190.5 cm; Wt 118.4 kg
[2021-03-08] VITALS (15 sets, daily range): BP systolic 95–117; BP diastolic 52–79
[~2021-03-08 07:05] MED LIST changes: +ASCO-134 PO; -ATOR20TA PO; +ATOR40TA72 PO; -CARV3.122 PO; +CARV6.253 PO; +CHOL100025 PO; +ISOS30TA84 PO; -LIPA1CAP18 PO; -LISI-790 PO; +LISI10TA27 PO; +METF-438 PO; -METF1000 PO; +MULT-1085 PO; -POTA20TA10 PO; +ZINC50TA67 PO
[2021-03-08] MEDS ORDERED: LORazepam 0.5 MG tablet PO ONE (07:50)
[2021-03-08] MEDS ORDERED: morphine 10mg/ml inj. IV ONE (07:50)
[2021-03-08] MEDS ORDERED: atropine 0.1mg/ml 10ml syringe IV ONE (07:50)
[2021-03-08] MEDS ORDERED: normal saline 1000ml 1,000 ML IV SCH (07:50)
[2021-03-08] MEDS ORDERED: amiodarone 150mg/dext, iso-os 100 ML IV ONE (07:50)
[2021-03-08] MEDS ORDERED: MIDAZolam 1mg/ml 10ml vial IV ONE (07:50)
[2021-03-08] MEDS ORDERED: diphenhydrAMINE 25mg capsule PO ONE (07:50)
[2021-03-08] MEDS ORDERED: FLEC100T2 PO (08:31)
[2021-03-08 08:45] LABS: BASOPHILS % (AUTO) 0.5 % (0-1); EOSINOPHILS # (AUTO) 0.2 X10'3 (0-0.9); EOSINOPHILS % (AUTO) 3.1 % (0-6); HEMATOCRIT 35.3 % (42.0-52.0); LYMPHOCYTES # (AUTO) 1.6 X10'3 (1.1-4.8); LYMPHOCYTES % (AUTO) 22.1 % (21-51); MEAN CORPUSCULAR HEMOGLOBIN 32.3 PG (27.0-31.0); MEAN CORPUSCULAR HGB CONC 33.9 g/dL (33.0-36.5); MEAN CORPUSCULAR VOLUME 95.3 FL (78-98); MEAN PLATELET VOLUME 7.5 FL (7.4-10.4); MONOCYTES # (AUTO) 0.8 X10'3 (0-0.9); MONOCYTES % (AUTO) 11.5 % (2-12); NEUTROPHILS # (AUTO) 4.5 X10'3 (1.8-7.7); NEUTROPHILS % (AUTO) 62.8 % (42-75); PLATELET COUNT 225 X10'3 (140-440); RED BLOOD COUNT 3.71 X10'6 (4.70-6.10); RED CELL DISTRIBUTION WIDTH 13.4 % (11.5-14.5); WHITE BLOOD COUNT 7.1 X10'3 (4.5-11.0)
[2021-03-08 09:10] LABS: ALBUMIN 3.8 G/DL (3.4-5.0); ANION GAP 6 (8-16); BLOOD UREA NITROGEN 10 MG/DL (7-18); CALCIUM 8.2 MG/DL (8.5-10.1); CHLORIDE 102 MMOL/L (99-107); GLUCOSE 106 MG/DL (70-104); POTASSIUM 4.6 MMOL/L (3.5-5.1); SODIUM 135 MMOL/L (135-145); TOTAL CARBON DIOXIDE 26.9 MMOL/L (24-32); eGFR 77 ML/MIN
== END 2021-03-08 11:15 | disposition home or self-care (01) ==
LOC: SSTAY O 07:05
PROVIDERS: ATTEND Internal Medicine Cardiovascular Disease
DX: I48.0 Paroxysmal atrial fibrillation (principal); I10 Essential (primary) hypertension; E78.5 Hyperlipidemia, unspecified; E11.9 Type 2 diabetes mellitus without complications; N40.0 Benign prostatic hyperplasia without lower urinary tract symptoms; Z79.01 Long term (current) use of anticoagulants; Z79.899 Other long term (current) drug therapy; Z79.84 Long term (current) use of oral hypoglycemic drugs; Z87.891 Personal history of nicotine dependence; Z98.890 Other specified postprocedural states
CPT/HCPCS: 36415; 80048; 82948; 85025; 92960; 93005; 94799; J2250; J2270; J7030

== ENCOUNTER 2021-04-15 23:51 | Emergency (ER) | payer MEDICARE, MEDICAID ==
[~2021-04-15] VITALS: Ht 190.5 cm; Wt 119.5 kg
[~2021-04-15 23:51] MED LIST changes: -ISOS30TA84 PO; -ISOS60TA71 PO; -METO5TAB98 PO
[2021-04-16 00:39] LABS: BASOPHILS % (AUTO) 0.4 % (0-1); EOSINOPHILS # (AUTO) 0.2 X10'3 (0-0.9); EOSINOPHILS % (AUTO) 3.2 % (0-6); HEMATOCRIT 35.4 % (42.0-52.0); LYMPHOCYTES # (AUTO) 2.1 X10'3 (1.1-4.8); LYMPHOCYTES % (AUTO) 28.7 % (21-51); MEAN CORPUSCULAR HEMOGLOBIN 31.9 PG (27.0-31.0); MEAN CORPUSCULAR HGB CONC 33.8 g/dL (33.0-36.5); MEAN CORPUSCULAR VOLUME 94.3 FL (78-98); MEAN PLATELET VOLUME 7.9 FL (7.4-10.4); MONOCYTES # (AUTO) 0.7 X10'3 (0-0.9); MONOCYTES % (AUTO) 9.8 % (2-12); NEUTROPHILS # (AUTO) 4.2 X10'3 (1.8-7.7); NEUTROPHILS % (AUTO) 57.9 % (42-75); PLATELET COUNT 218 X10'3 (140-440); RED BLOOD COUNT 3.75 X10'6 (4.70-6.10); RED CELL DISTRIBUTION WIDTH 13.4 % (11.5-14.5); WHITE BLOOD COUNT 7.2 X10'3 (4.5-11.0)
[2021-04-16 00:42] VITALS: BP 117/77
[2021-04-16 00:45] LABS: ALANINE AMINOTRANSFERASE 29 U/L (12-78); ALBUMIN 4.1 G/DL (3.4-5.0); ALBUMIN/GLOBULIN RATIO 1.3 (1.1-1.5); ALKALINE PHOSPHATASE 73 IU/L (46-116); ANION GAP 10 (8-16); ASPARTATE AMINO TRANSFERASE 25 U/L (10-37); BILIRUBIN,TOTAL 0.5 MG/DL (0.1-1.0); BLOOD UREA NITROGEN 13 MG/DL (7-18); CALCIUM 8.4 MG/DL (8.5-10.1); CHLORIDE 101 MMOL/L (99-107); CREATININE 0.93 MG/DL (0.60-1.10); GLUCOSE 106 MG/DL (70-104); POTASSIUM 3.5 MMOL/L (3.5-5.1); SODIUM 138 MMOL/L (135-145); TOTAL CARBON DIOXIDE 26.7 MMOL/L (24-32); TOTAL PROTEIN 7.2 G/DL (6.4-8.2); eGFR 83 ML/MIN
== END 2021-04-16 01:33 | disposition left against medical advice (07) ==
LOC: ER 23:51
DX: I24.9 Acute ischemic heart disease, unspecified (principal); I10 Essential (primary) hypertension; I48.91 Unspecified atrial fibrillation; E11.65 Type 2 diabetes mellitus with hyperglycemia; D64.9 Anemia, unspecified; I25.810 Atherosclerosis of coronary artery bypass graft(s) without angina pectoris; G40.909 Epilepsy, unspecified, not intractable, without status epilepticus; F12.90 Cannabis use, unspecified, uncomplicated; J44.9 Chronic obstructive pulmonary disease, unspecified; K21.9 Gastro-esophageal reflux disease without esophagitis; G89.29 Other chronic pain; Z86.19 Personal history of other infectious and parasitic diseases; Z86.73 Personal history of transient ischemic attack (TIA), and cerebral infarction without residual deficits; Z88.6 Allergy status to analgesic agent; Z88.8 Allergy status to other drugs, medicaments and biological substances; Z79.899 Other long term (current) drug therapy; Z87.440 Personal history of urinary (tract) infections; Z95.5 Presence of coronary angioplasty implant and graft
CPT/HCPCS: 36415; 71045; 80053; 83880; 84484; 85025; 93005; 99285

== ENCOUNTER 2021-05-10 08:00 | Outpatient (CLI) | payer MEDICARE, MEDICAID ==
[2021-05-10 15:53] LABS: BASOPHILS % (AUTO) 0.6 % (0-1); EOSINOPHILS # (AUTO) 0.2 X10'3 (0-0.9); EOSINOPHILS % (AUTO) 2.5 % (0-6); HEMATOCRIT 34.7 % (42.0-52.0); HEMOGLOBIN 11.8 g/dl (14.0-17.9); MEAN CORPUSCULAR HEMOGLOBIN 31.9 PG (27.0-31.0); MEAN CORPUSCULAR HGB CONC 33.9 g/dL (33.0-36.5); MEAN PLATELET VOLUME 7.8 FL (7.4-10.4); MONOCYTES # (AUTO) 0.7 X10'3 (0-0.9); MONOCYTES % (AUTO) 8.6 % (2-12); NEUTROPHILS # (AUTO) 4.8 X10'3 (1.8-7.7); NEUTROPHILS % (AUTO) 62.3 % (42-75); PLATELET COUNT 208 X10'3 (140-440); RED BLOOD COUNT 3.69 X10'6 (4.70-6.10); RED CELL DISTRIBUTION WIDTH 13.5 % (11.5-14.5); WHITE BLOOD COUNT 7.6 X10'3 (4.5-11.0)
[2021-05-10 16:00] LABS: ALBUMIN 3.7 G/DL (3.4-5.0); ANION GAP 6 (8-16); BLOOD UREA NITROGEN 9 MG/DL (7-18); BUN/CREATININE RATIO 9.5 (5.4-32.0); CHLORIDE 105 MMOL/L (99-107); CREATININE 0.95 MG/DL (0.60-1.10); GLUCOSE 64 MG/DL (70-104); POTASSIUM 3.8 MMOL/L (3.5-5.1); SODIUM 143 MMOL/L (135-145); TOTAL CARBON DIOXIDE 31.8 MMOL/L (24-32); eGFR 81 ML/MIN
== END 2021-05-10 23:00 | disposition home or self-care (01) ==
LOC: LAB 08:00 → RAD 14:48 → LAB 23:00 → EDSTATUS 05-11 07:52
PROVIDERS: ATTEND Internal Medicine Cardiovascular Disease
DX: I48.91 Unspecified atrial fibrillation (principal)
CPT/HCPCS: 36415; 80048; 85025; 85610

== ENCOUNTER 2022-11-18 15:23 | Emergency (ER) | payer MEDICARE, MEDICAID ==
[~2022-11-18] VITALS: Ht 190.5 cm; Wt 122.0 kg
[2022-11-18 15:28] VITALS: BP 124/55
[2022-11-18] MEDS ORDERED: ibuprofen tablet 400 MG TABLET PO ONE (16:35)
== END 2022-11-18 17:13 | disposition home or self-care (01) ==
LOC: ER 15:24
DX: S93.402A Sprain of unspecified ligament of left ankle, initial encounter (principal); I10 Essential (primary) hypertension; J44.9 Chronic obstructive pulmonary disease, unspecified; K21.9 Gastro-esophageal reflux disease without esophagitis; E11.9 Type 2 diabetes mellitus without complications; G89.29 Other chronic pain; M54.50 Low back pain, unspecified; F12.90 Cannabis use, unspecified, uncomplicated; Z88.6 Allergy status to analgesic agent; Z88.8 Allergy status to other drugs, medicaments and biological substances; W00.0XXA Fall on same level due to ice and snow, initial encounter; Y93.89 Activity, other specified; Y92.89 Other specified places as the place of occurrence of the external cause; Y99.8 Other external cause status
CPT/HCPCS: 73610; 99284; L4360

== ENCOUNTER 2023-04-24 05:58 | Day surgery (SDC) | payer MEDICARE, OTHER ==
[2023-04-24] VITALS (10 sets, daily range): BP systolic 94–115; BP diastolic 51–66; PULSE 63–76; RESP 10–16; TEMP 97.8; O2SAT 95–99
[~2023-04-24] VITALS: Ht 190.5 cm; Wt 117.6 kg
[~2023-04-24 05:58] MED LIST changes: +MONT-48 PO; -MONT10TA21 PO
[2023-04-24] MEDS ORDERED: normal saline 1000ml 1,000 ML IV SCH (06:35)
[2023-04-24] MEDS ORDERED: diphenhydrAMINE 25mg capsule PO ONE (06:35)
[2023-04-24] MEDS ORDERED: MIDAZolam 1mg/ml 10ml vial IV ONE (06:35)
[2023-04-24] MEDS ORDERED: morphine 10mg/ml inj. IV ONE (06:35)
[2023-04-24] MEDS ORDERED: LORazepam 0.5 MG tablet PO ONE (06:35)
[2023-04-24] MEDS ORDERED: atropine 0.1mg/ml 10ml syringe IV ONE (06:35)
[2023-04-24] MEDS ORDERED: amiodarone 150mg/dext, iso-os 100 ML IV ONE (06:35)
[2023-04-24] MEDS ORDERED: ISOS60TA71 PO (06:59)
[2023-04-24] MEDS ORDERED: LISI20TA28 PO (06:59)
[2023-04-24] MEDS ORDERED: SOTA80TA10 PO (06:59)
[2023-04-24] MEDS ORDERED: MONT-40 PO (06:59)
[2023-04-24 07:12] LABS: BASOPHILS % (AUTO) 0.5 % (0-1); EOSINOPHILS # (AUTO) 0.1 X10'3 (0-0.9); HEMATOCRIT 34.9 % (42.0-52.0); HEMOGLOBIN 11.9 g/dl (14.0-17.9); LYMPHOCYTES # (AUTO) 1.2 X10'3 (1.1-4.8); LYMPHOCYTES % (AUTO) 15.8 % (21-51); MEAN CORPUSCULAR HEMOGLOBIN 32.7 PG (27.0-31.0); MEAN CORPUSCULAR HGB CONC 34.2 g/dL (33.0-36.5); MEAN CORPUSCULAR VOLUME 95.5 FL (78-98); MEAN PLATELET VOLUME 7.2 FL (7.4-10.4); MONOCYTES # (AUTO) 0.8 X10'3 (0-0.9); MONOCYTES % (AUTO) 10.5 % (2-12); NEUTROPHILS # (AUTO) 5.4 X10'3 (1.8-7.7); NEUTROPHILS % (AUTO) 71.2 % (42-75); PLATELET COUNT 232 X10'3 (140-440); RED BLOOD COUNT 3.66 X10'6 (4.70-6.10); RED CELL DISTRIBUTION WIDTH 13.6 % (11.5-14.5); WHITE BLOOD COUNT 7.5 X10'3 (4.5-11.0)
[2023-04-24 07:31] LABS: ALBUMIN 3.8 G/DL (3.4-5.0); ANION GAP 4 (8-16); BLOOD UREA NITROGEN 9 MG/DL (7-18); BUN/CREATININE RATIO 10.5 (10.0-20.0); CALCIUM 8.4 MG/DL (8.5-10.1); CHLORIDE 103 MMOL/L (99-107); CREATININE 0.86 MG/DL (0.60-1.10); GLUCOSE 110 MG/DL (70-104); POTASSIUM 4.3 MMOL/L (3.5-5.1); SODIUM 135 MMOL/L (135-145); TOTAL CARBON DIOXIDE 27.7 MMOL/L (24-32); eGFR > 90 ML/MIN
[2023-04-24] MEDS ORDERED: potassium Cl 20 mEq SR tablet PO STA (08:19)
== END 2023-04-24 09:25 | disposition home or self-care (01) ==
LOC: SSTAY O 05:58
PROVIDERS: ATTEND Internal Medicine Cardiovascular Disease
DX: I48.0 Paroxysmal atrial fibrillation (principal); I25.10 Atherosclerotic heart disease of native coronary artery without angina pectoris; I27.20 Pulmonary hypertension, unspecified; I10 Essential (primary) hypertension; E78.5 Hyperlipidemia, unspecified; E11.9 Type 2 diabetes mellitus without complications; E66.9 Obesity, unspecified; Z68.32 Body mass index [BMI] 32.0-32.9, adult; J45.909 Unspecified asthma, uncomplicated; B18.2 Chronic viral hepatitis C; N40.0 Benign prostatic hyperplasia without lower urinary tract symptoms; F41.9 Anxiety disorder, unspecified; F31.81 Bipolar II disorder; I42.9 Cardiomyopathy, unspecified; G47.30 Sleep apnea, unspecified; F17.211 Nicotine dependence, cigarettes, in remission; Z86.73 Personal history of transient ischemic attack (TIA), and cerebral infarction without residual deficits; Z98.890 Other specified postprocedural states; Z79.899 Other long term (current) drug therapy; Z79.01 Long term (current) use of anticoagulants; Z79.84 Long term (current) use of oral hypoglycemic drugs; Z82.49 Family history of ischemic heart disease and other diseases of the circulatory system
CPT/HCPCS: 36415; 80048; 85025; 85610; 92960; 93005; J2250; J2274; J7030; Q0163; A4620

== ENCOUNTER 2025-05-07 15:32 | Outpatient (CLI) | payer MEDICARE, MEDICAID ==
[~2025-05-07 15:32] MED LIST changes: -CARV6.253 PO; -FLEC100T2 PO; -FLO0.4C PO; +GABA-1555 PO; -GABA800T11 PO; +ISOS60TA71 PO; -LISI10TA27 PO; +LISI20TA28 PO; +MONT-40 PO; -MONT-48 PO; +SOTA80TA10 PO; +TAMS-55 PO
--- NOTE | 2025-05-07 20:42 | RADIOLOGY REPORT ---
CLINICAL INDICATION: Pain TECHNIQUE: DI KNEE, COMP 4 VW MIN, DI KNEE, COMP 4 VW MIN Comparison: None FINDINGS/IMPRESSION: : There is no evidence of acute fracture or dislocation. Small joint effusion. Moderate to severe medial joint space narrowing.
== END 2025-05-07 23:59 | disposition home or self-care (01) ==
LOC: RAD 15:32
PROVIDERS: ATTEND Family Medicine
DX: M25.462 Effusion, left knee (principal); M25.561 Pain in right knee; M25.562 Pain in left knee; M25.461 Effusion, right knee; M25.862 Other specified joint disorders, left knee; M25.861 Other specified joint disorders, right knee
CPT/HCPCS: 73564